=== PATIENT | male | born 1990 | race Caucasian/White ===

== ENCOUNTER 2016-11-04 08:49 | Observation (INO) | payer OTHER ==
[~2016-11-04] VITALS: Ht 188 cm; Wt 63.0 kg
[2016-11-04 08:51] VITALS: BP 134/69; PULSE 89; RESP 16; TEMP 97.9; O2SAT 100
[2016-11-04 09:12] VITALS: O2SAT 98
[2016-11-04] MEDS ORDERED: PANTOPRAZOLE INJ 80 MG in SODIUM CHLORIDE 0.9% INJ 35 ML IV ONE (09:15)
[2016-11-04] MEDS ORDERED: SODIUM CHLORIDE 0.9% FLUSH 10 ML FLUSH IVF PRN (09:15)
--- NOTE | 2016-11-04 09:27 | RADRPT ---
EXAM DATE/TIME: 11/04/2016 09:11 [place] COMPARISON: No previous studies available for comparison. INDICATIONS : Chest pain and shortness of breath. MEDICAL HISTORY : None. SURGICAL HISTORY : None. ENCOUNTER: Initial ACUITY: 2 days PAIN SCORE: 10/10 LOCATION: Bilateral chest FINDINGS: AP views of the chest demonstrate a normal-sized cardiac silhouette. Hilar structures are elevated. T here are lung stable lines visualized bilaterally. No effusion, consolidation, or pneumothorax is isidro ntified. Embolization coil overlies the left upper quadrant. CONCLUSION: No acute cardiopulmonary abnormality is identified. There are findings indicating prior bilateral manejet g surgery. Usman White MD on November 04, 2016 at 9:21 Board Certified Radiologist. This report was verified electronically.
[2016-11-04 09:32] LABS: AUTOMATED NEUTROPHIL # 4.9 TH/MM3 (1.8-7.7); BASOPHIL # 0.1 TH/MM3 (0-0.2); BASOPHIL % 0.8 % (0.0-2.0); EOSINOPHIL # 0.1 TH/MM3 (0-0.4); EOSINOPHIL % 1.5 % (0.0-4.0); HEMATOCRIT 41.9 % (39.0-51.0); HEMO FLAGS DIFF FINAL; LYMPH % 22.8 % (9.0-44.0); LYMPHOCYTE # 1.7 TH/MM3 (1.0-4.8); MEAN CORPUSCULAR HEMOGLOBIN 28.4 PG (27.0-34.0); MEAN CORPUSCULAR HGB CONC 33.1 % (32.0-36.0); MONO % 8.8 % (0.0-8.0); NEUT % 66.1 % (16.0-70.0); PLATELET COUNT 185 TH/MM3 (150-450); RED BLOOD COUNT 4.88 MIL/MM3 (4.50-5.90); RED CELL DISTRIBUTION WIDTH 14.6 % (11.6-17.2); WHITE BLOOD COUNT 7.5 TH/MM3 (4.0-11.0)
[2016-11-04 09:39] LABS: APTT (PATIENT) 37.3 SEC (24.3-30.1); INTERNATIONAL NORMALIZED RATIO 2.5 RATIO; PROTHROMBIN TIME - PATIENT 28.5 SEC (9.8-11.6)
[2016-11-04 09:44] LABS: ANION GAP 9 MEQ/L (5-15); AST (GOT) 11 U/L (15-37); BICARBONATE 26.7 MEQ/L (21.0-32.0); BLOOD UREA NITROGEN 21 MG/DL (7-18); CHLORIDE 106 MEQ/L (98-107); GLOMERULAR FILTRATION RATE 77 ML/MIN (>89); POTASSIUM 3.9 MEQ/L (3.5-5.1); SODIUM (NA) 142 MEQ/L (136-145)
[2016-11-04 09:45] LABS: ALT (GPT) 18 U/L (12-78)
[2016-11-04] MEDS ORDERED: MORPHINE SULFATE 4 MG/ML INJ IV PUSH ONE (09:45)
[2016-11-04 09:47] LABS: ALKALINE PHOSPHATASE 60 U/L (45-117); TOTAL BILIRUBIN ADULT 0.8 MG/DL (0.2-1.0)
[2016-11-04] MEDS: PANTOPRAZOLE INJ 80 MG in SODIUM CHLORIDE 0.9% INJ 100 ML IV SCH ×2 (10:07→21:33)
[2016-11-04] MEDS ORDERED: NALOXONE HCL 0.4 MG/ML AMP IV PRN (11:30)
[2016-11-04] MEDS ORDERED: ONDANSETRON HCL 4 MG/2 ML VIAL IVP PRN (11:30)
[2016-11-04] MEDS ORDERED: SODIUM CHLORIDE 0.9% FLUSH 10 ML FLUSH IV FLUSH PRN (11:30)
[2016-11-04] MEDS ORDERED: ACETAMINOPHEN 325 MG TAB PO PRN ×2 (11:30)
[2016-11-04] MEDS ORDERED: MAGNESIUM HYDROXIDE SUSP 30 ML CUP PO PRN (11:30)
--- NOTE | 2016-11-04 11:34 | PD ---
HPI Chief Complaint: Cardiac Complaint Time Seen by Provider: 09:04 Travel History International Travel<30 days: No Contact w/Intl Traveler<30days: No Traveled to known affect area: No History of Present Illness HPI This is a 26-year-old male who has a history of lupus anticoagulant with recurrent pulmonary emboli who presents to the emergency department with 2 days of coffee-ground emesis and dark stools, intermittent, moderate severity, with no associated abdominal pain. He says that yesterday he vomited and he noticed that what came up was dark and looked like coffee grounds. He's also had some black stools which is unusual for him. He is on Coumadin for recurrent pulmonary embolism. He also says he's had some chest discomfort and shortness of breath over the past several days. He also has a history of spontaneous pneumothorax but he says this doesn't feel like that. He follows with a md psychiatry in [place] and was on Xarelto for a period of time but developed a pulmonary embolism despite it so he was switched to Coumadin. 3 weeks ago his INR was slightly subtherapeutic and his dose was increased. PFSH Past Medical History Hx Anticoagulant Therapy: Yes (coumadin) Blood Disorders: Yes Cardiovascular Problems: Yes Medical other: Yes (anti coag Lupus) Respiratory: Yes (hx of PE and Pneumothorax) Myocardial Infarction: Yes Thyroid Disease: Yes Tetanus Vaccination: < 5 Years Influenza Vaccination: No Past Surgical History Other Surgery: Yes (lung surgeries) Social History Alcohol Use: No Tobacco Use: Yes Substance Use: No Allergies-Medications (Allergen,Severity, Reaction): Coded Allergies: No Known Allergies (Unverified , 11/04/16) Review of Systems Except as stated in HPI: all other systems reviewed are Neg Physical Exam Narrative GENERAL:Well appearing, no acute distress SKIN: Focused skin assessment warm and dry. HEAD: Atraumatic. Normocephalic. EYES: Pupils equal and round. No injection or drainage. ENT: Moist mucous membranes NECK: Trachea midline. CARDIOVASCULAR: Regular rate and rhythm. No murmur appreciated. RESPIRATORY: Clear to auscultation. Breath sounds equal bilaterally. GASTROINTESTINAL: Abdomen soft, non-tender, nondistended. MUSCULOSKELETAL: No obvious deformities. NEUROLOGICAL: Awake and alert. No obvious cranial nerve deficits. Moving all extremities. PSYCHIATRIC: Appropriate mood and affect; insight and judgment normal. Data Data Last Documented VS Vital Signs Date Time Temp Pulse Resp B/P Pulse Ox O2 Delivery O2 Flow Rate FiO2 11/04/16 09:12 98 11/04/16 09:00 79 18 Room Air 11/04/16 08:51 97.9 134/69 Orders Complete Blood Count With Diff (11/04/16 09:09) Comprehensive Metabolic Panel (11/04/16 09:09) Prothrombin Time / Inr (Pt) (11/04/16 09:09) Act Partial Throm Time (Ptt) (11/04/16 09:09) Type And Screen (11/04/16 09:09) Chest, Single Ap (11/04/16 09:09) Ecg Monitoring (11/04/16 09:09) Iv Access Insert/Monitor (11/04/16 09:09) Oximetry (11/04/16 09:09) Sodium Chloride 0.9% Flush (Ns Flush) (11/04/16 09:15) Pantoprazole Inj (Protonix Inj) (11/04/16 09:15) Pantoprazole Inj (Protonix Inj) (11/04/16 09:15) D-Dimer (11/04/16 09:11) Troponin I (11/04/16 09:20) Morphine Inj (Morphine Inj) (11/04/16 09:45) Electrocardiogram (11/04/16 09:00) Admit Order (Ed Use Only) (11/04/16 11:16) Labs Laboratory Tests Test 11/04/16 09:10 White Blood Count 7.5 TH/MM3 Red Blood Count 4.88 MIL/MM3 Hemoglobin 13.9 GM/DL Hematocrit 41.9 % Mean Corpuscular Volume 86.0 FL Mean Corpuscular Hemoglobin 28.4 PG Mean Corpuscular Hemoglobin 33.1 % Concent Red Cell Distribution Width 14.6 % Platelet Count 185 TH/MM3 Mean Platelet Volume 7.3 FL Neutrophils (%) (Auto) 66.1 % Lymphocytes (%) (Auto) 22.8 % Monocytes (%) (Auto) 8.8 % Eosinophils (%) (Auto) 1.5 % Basophils (%) (Auto) 0.8 % Neutrophils # (Auto) 4.9 TH/MM3 Lymphocytes # (Auto) 1.7 TH/MM3 Monocytes # (Auto) 0.7 TH/MM3 Eosinophils # (Auto) 0.1 TH/MM3 Basophils # (Auto) 0.1 TH/MM3 CBC Comment DIFF FINAL Differential Comment Prothrombin Time 28.5 SEC Prothromb Time International 2.5 RATIO Ratio Activated Partial 37.3 SEC Thromboplast Time D-Dimer Quantitative (PE/DVT) LESS THAN 0.19 MG/L FEU Sodium Level 142 MEQ/L Potassium Level 3.9 MEQ/L Chloride Level 106 MEQ/L Carbon Dioxide Level 26.7 MEQ/L Anion Gap 9 MEQ/L Blood Urea Nitrogen 21 MG/DL Creatinine 1.13 MG/DL Estimat Glomerular Filtration 77 ML/MIN Rate Random Glucose 61 MG/DL Calcium Level 9.1 MG/DL Total Bilirubin 0.8 MG/DL Aspartate Amino Transf 11 U/L (AST/SGOT) Alanine Aminotransferase 18 U/L (ALT/SGPT) Alkaline Phosphatase 60 U/L Troponin I LESS THAN 0.02 NG/ML Total Protein 7.1 GM/DL Albumin 4.7 GM/DL Blood Type O POSITIVE Antibody Screen NEGATIVE Blood Bank Comment [facility] Medical Decision Making Medical Screen Exam Complete: Yes Emergency Medical Condition: Yes Interpretation(s) Afebrile, no tachycardia, normotensive Electrolytes are reassuring Troponin is normal D-dimer is negative Chest x-rays reassuring Differential Diagnosis Upper GI bleed, anemia, pulmonary embolism, pneumothorax Narrative Course This is a 26-year-old male who has a history of lupus anticoagulant who develops recurrent pulmonary emboli comes to the emergency department with coffee ground emesis and dark stool. Labs were obtained which demonstrate an INR of 2.5 with a normal hemoglobin. Patient requested we send a d-dimer and not do a CT scan given his multiple imaging studies in the past and the d-dimer was reassuring. I did perform a Hemoccult but wasn't able to obtain any stool. I think the patient requires observation for serial hematocrits, GI consultation and likely endoscopy in the setting of upper GI bleed on anticoagulation. Patient was started on a Protonix drip. Diagnosis Primary Impression: Upper GI bleed Admitting Information Admitting Physician Requests: Observation Kate Wilson MD Nov 04, 2016 11:34
[2016-11-04] MEDS ORDERED: GABA300C5 PO (11:50)
[2016-11-04] MEDS ORDERED: COUM5TAB PO (11:50)
[2016-11-04] MEDS ORDERED: METH5TAB4 PO (11:50)
[2016-11-04] MEDS ORDERED: OXYC-395 PO (11:50)
[2016-11-04 11:59] VITALS: BP 101/63; PULSE 59; RESP 20
[2016-11-04 13:29] VITALS: BP 100/62; PULSE 52; RESP 16; TEMP 98.7; O2SAT 100
--- NOTE | 2016-11-04 13:45 | HHI.HP ---
HPI Service [facility] Primary Care Physician Non-Staff Admission Diagnosis upper gi bleed Diagnoses: (1) Upper GI bleed (2) History of pulmonary embolism (3) Lupus (4) Tobacco abuse counseling (5) Tobacco abuse Chief Complaint: Hematemesis Travel History International Travel<30 Days: No Contact w/Intl Traveler <30 Da: No Traveled to Known Affected Are: No History of Present Illness 26-year-old male with a history of lupus anticoagulant and recurring PE present to the ED for evaluation of acute onset of a cyst 2 with bright red blood on November 04 along with 1 bright red blood per rectum. She had associated abdominal pain. Denies any episode today. He is currently on Coumadin 6 years for PE. H&H in ED unremarkable and vital stable. Patient denies any shortness of breath or chest pain. Review of Systems Except as stated in HPI: all other systems reviewed are Neg Past Family Social History Past Medical History Blood Disorders: Yes Cardiovascular Problems: Yes Medical other: Yes (anti coag Lupus) Respiratory: Yes (hx of PE and Pneumothorax) Myocardial Infarction: Yes Thyroid Disease: Yes Past Surgical History Lung surgeries Reported Medications Neurontin Methimazole 5 mg daily Coumadin 5 mg daily Rosalba-Colace Allergies: Coded Allergies: No Known Allergies (Unverified , 11/04/16) Family History Mother had cancer Father has hypertension, hyperlipidemia Strong family history of GI cancer Social History Alcohol Use: No Tobacco Use: Yes Substance Use: No Physical Exam Vital Signs Vital Signs Date Time Temp Pulse Resp B/P Pulse Ox O2 Delivery O2 Flow Rate FiO2 11/04/16 13:29 98.7 52 16 100/62 100 11/04/16 11:59 59 20 101/63 11/04/16 09:12 98 11/04/16 09:00 79 18 100 Room Air 11/04/16 08:51 97.9 89 16 134/69 100 Physical Exam GENERAL: This is a well-nourished, well-developed patient, in no apparent distress. SKIN: No rashes, ecchymoses or lesions. Cool and dry. HEAD: Atraumatic. Normocephalic. No temporal or scalp tenderness. EYES: Pupils equal round and reactive. Extraocular motions intact. No scleral icterus. No injection or drainage. ENT: Nose without bleeding, purulent drainage or septal hematoma. Throat without erythema, tonsillar hypertrophy or exudate. Uvula midline. Airway patent. NECK: Trachea midline. No JVD or lymphadenopathy. Supple, nontender, no meningeal signs. CARDIOVASCULAR: Regular rate and rhythm without murmurs, gallops, or rubs. RESPIRATORY: Clear to auscultation. Breath sounds equal bilaterally. No wheezes , rales, or rhonchi. GASTROINTESTINAL: Abdomen soft, non-tender, nondistended. No hepato-splenomegaly , or palpable masses. No guarding. MUSCULOSKELETAL: Extremities without clubbing, cyanosis, or edema. No joint tenderness, effusion, or edema noted. No calf tenderness. Negative Homans sign bilaterally. NEUROLOGICAL: Awake and alert. Cranial nerves II through XII intact. Motor and sensory grossly within normal limits. Five out of 5 muscle strength in all muscle groups. Normal speech. Laboratory Laboratory Tests Test 11/04/16 09:10 White Blood Count 7.5 Red Blood Count 4.88 Hemoglobin 13.9 Hematocrit 41.9 Mean Corpuscular Volume 86.0 Mean Corpuscular Hemoglobin 28.4 Mean Corpuscular Hemoglobin 33.1 Concent Red Cell Distribution Width 14.6 Platelet Count 185 Mean Platelet Volume 7.3 Neutrophils (%) (Auto) 66.1 Lymphocytes (%) (Auto) 22.8 Monocytes (%) (Auto) 8.8 Eosinophils (%) (Auto) 1.5 Basophils (%) (Auto) 0.8 Neutrophils # (Auto) 4.9 Lymphocytes # (Auto) 1.7 Monocytes # (Auto) 0.7 Eosinophils # (Auto) 0.1 Basophils # (Auto) 0.1 CBC Comment DIFF FINAL Differential Comment Prothrombin Time 28.5 Prothromb Time International 2.5 Ratio Activated Partial 37.3 Thromboplast Time D-Dimer Quantitative (PE/DVT) LESS THAN 0.19 Sodium Level 142 Potassium Level 3.9 Chloride Level 106 Carbon Dioxide Level 26.7 Anion Gap 9 Blood Urea Nitrogen 21 Creatinine 1.13 Estimat Glomerular Filtration 77 Rate Random Glucose 61 Calcium Level 9.1 Total Bilirubin 0.8 Aspartate Amino Transf 11 (AST/SGOT) Alanine Aminotransferase 18 (ALT/SGPT) Alkaline Phosphatase 60 Troponin I LESS THAN 0.02 Total Protein 7.1 Albumin 4.7 Blood Type O POSITIVE Antibody Screen NEGATIVE Blood Bank Comment Result Diagram: 11/04/16 0910 11/04/16909 Imaging Last Impressions Chest X-Ray 11/04/16908 Signed Impressions: Service Date/Time: Friday, November 04, 2016 09:11 - CONCLUSION: No acute cardiopulmonary abnormality is identified. There are findings indicating prior bilateral lung surgery. Usman White MD Assessment and Plan Problem List: (1) Upper GI bleed ICD Code: K92.2 Status: Acute (2) History of pulmonary embolism ICD Code: Z86.711 Status: Acute (3) Tobacco abuse ICD Code: Z72.0 Status: Acute (4) Tobacco abuse counseling ICD Code: Z71.6 Status: Acute Assessment and Plan 26 year-old man with Gastrointestinal bleeding Consult gastroenterology for evaluation for possible panendoscopy Start PPI drip Hold Coumadin Monitor serial H&H History of recurrent PE Chest x-ray noted and reviewed by me without any cardio pulmonary disease Normal d-dimer Secondary to GI bleed, will hold Coumadin History of hyperthyroidism Resume Methimazole Chronic pain syndrome Resume narcotics Schedule Rosalba-Colace Neuropathy Resume Neurontin History of systemic lupus Outpatient management Tobacco abuse Tobacco cessation counseling provided DVT prophylaxis: Chemical anti-prophylactic contraindicated C5 to GI bleed; bilateral SCDs GI prophylaxis: PPI Code Status Full code Discussed Condition With Patient, ED physician Alvin Quiñones MD Nov 04, 2016 13:45
--- NOTE | 2016-11-04 14:05 | EKG ---
Date Performed: 11/04/2016 Time Performed: 09:00:49 PTAGE: 26 years EKG: Sinus rhythm BORDERLINE RIGHT AXIS DEVIATION BORDERLINE ECG NO PREVIOUS TRACING DOCTOR: Jose Willis Interpretating Date/Time 11/04/2016 14:03:16
--- NOTE | 2016-11-04 14:40 | PD.CONS ---
HPI History of Present Illness This is a 26 year old male with hx lupus, recurrent PE on coumadin who presented to the ER with chest pain, abd pain, red blood in stool, coffee ground emesis. 2-3 days ago he began noticing progessive darkening of stool and also with red blood in stool and in bowl. Yesterday and this morning he had coffee ground emesis. HIs abd pain is in the epigastric region and started this morning after trying to eat a PBJ. He indicates sternal pain as well yesterday morning and has improved, no SOB. He does have hx PE and had one in July, he says he has had 14 in the last 3.5 years. He last had coumadin yesterday. He had an episode of rectal bleeding 4 to 5 years ago and had colonoscopy, said "stuff was scraped off" that was supposedly "cancerous." Pos fam hx colon ca. Never had EGD. Pt is asking for lovenox since his coumadin is being held. (Arin Braun) PFSH Past Medical History Blood Disorders: Yes Cardiovascular Problems: Yes Medical other: Yes (anti coag Lupus) Respiratory: Yes (hx of PE and Pneumothorax) Myocardial Infarction: Yes Thyroid Disease: Yes Past Surgical History Lung surgeries for pneumothorax (Arin Braun) Coded Allergies: No Known Allergies (Unverified , 11/04/16) Family History Mother had cancer Father has hypertension, hyperlipidemia Strong family history of GI cancer Social History Alcohol Use: No Tobacco Use: Yes Substance Use: No (Arin Braun) Review of Systems Constitutional: DENIES: Fever Eyes: DENIES: Blurred vision Ears, nose, mouth, throat: DENIES: Hearing loss Respiratory: DENIES: Hemoptysis Cardiovascular: COMPLAINS OF: Chest pain Gastrointestinal: COMPLAINS OF: Abdominal pain, Black stools, Bloody stools, Diarrhea, Nausea, Vomiting, Hematemesis Genitourinary: DENIES: Hematuria Musculoskeletal: DENIES: Joint Swelling Integumentary: DENIES: Jaundice Hematologic/lymphatic: DENIES: Lymphadenopathy Neurologic: DENIES: Abnormal gait Psychiatric: DENIES: Confusion (Arin Braun) GI Exam Vitals I&O Vital Signs Date Time Temp Pulse Resp B/P Pulse Ox O2 Delivery O2 Flow Rate FiO2 11/04/16 13:29 98.7 52 16 100/62 100 11/04/16 11:59 59 20 101/63 11/04/16 09:12 98 11/04/16 09:00 79 18 100 Room Air 11/04/16 08:51 97.9 89 16 134/69 100 Imaging Last Impressions Chest X-Ray 11/04/16 0909 Signed Impressions: Service Date/Time: Friday, November 04, 2016 09:11 - CONCLUSION: No acute cardiopulmonary abnormality is identified. There are findings indicating prior bilateral lung surgery. Usman White MD Laboratory Test 11/04/16 09:10 White Blood Count 7.5 TH/MM3 Red Blood Count 4.88 MIL/MM3 Hemoglobin 13.9 GM/DL Hematocrit 41.9 % Mean Corpuscular Volume 86.0 FL Mean Corpuscular Hemoglobin 28.4 PG Mean Corpuscular Hemoglobin 33.1 % Concent Red Cell Distribution Width 14.6 % Platelet Count 185 TH/MM3 Mean Platelet Volume 7.3 FL Neutrophils (%) (Auto) 66.1 % Lymphocytes (%) (Auto) 22.8 % Monocytes (%) (Auto) 8.8 % Eosinophils (%) (Auto) 1.5 % Basophils (%) (Auto) 0.8 % Neutrophils # (Auto) 4.9 TH/MM3 Lymphocytes # (Auto) 1.7 TH/MM3 Monocytes # (Auto) 0.7 TH/MM3 Eosinophils # (Auto) 0.1 TH/MM3 Basophils # (Auto) 0.1 TH/MM3 CBC Comment DIFF FINAL Differential Comment Prothrombin Time 28.5 SEC Prothromb Time International 2.5 RATIO Ratio Activated Partial 37.3 SEC Thromboplast Time D-Dimer Quantitative (PE/DVT) LESS THAN 0.19 MG/L FEU Sodium Level 142 MEQ/L Potassium Level 3.9 MEQ/L Chloride Level 106 MEQ/L Carbon Dioxide Level 26.7 MEQ/L Anion Gap 9 MEQ/L Blood Urea Nitrogen 21 MG/DL Creatinine 1.13 MG/DL Estimat Glomerular Filtration 77 ML/MIN Rate Random Glucose 61 MG/DL Calcium Level 9.1 MG/DL Total Bilirubin 0.8 MG/DL Aspartate Amino Transf 11 U/L (AST/SGOT) Alanine Aminotransferase 18 U/L (ALT/SGPT) Alkaline Phosphatase 60 U/L Troponin I LESS THAN 0.02 NG/ML Total Protein 7.1 GM/DL Albumin 4.7 GM/DL Blood Type O POSITIVE Antibody Screen NEGATIVE Blood Bank Comment Physical Examination HEENT: PERRL; normocephalic; atraumatic; no jaundice. CHEST: CTA CARDIAC: RRR ABDOMEN: Soft, nondistended,epigastric & LUQ TTP; no hepatosplenomegaly; bowel sounds are present in all four quadrants. EXTREMITIES: No clubbing, cyanosis, or edema. SKIN: Normal; no rash; no jaundice. RECORD PRESSMAN: No focal deficits; alert and oriented times three. (Arin Braun) Assessment and Plan Plan ASSESSMENT - coffee ground emesis - episodes yesterday and this morning. HH WNL currently. Pt has been on coumadin for recurrent PE, hx lupus anticoagulant coumadin held currently, INR 2.5 - hematochezia, melena - 2-3 days ago pt started noticing blood in stool and darkening of stool. hx prior rectal bleeding 4-5 years ago for which he had colonoscopy and something precancerous was "scraped off - recurrent PE - d -dimer reassuring per primary, CXR ok PLAN - EGD/colonoscopy - obtain consents - clears today - NPO after midnight - Mg Citrate - monitor HH - if active bleeding stat bleed scan - further recommendations to follow This pt seen by Dr Anguiano and myself and this note is written on her behalf ( Arin Braun) Physician Comments seen, examined agree with above history of recent NSAID use also strong family history of cancer at young age (Moira Anguiano MD) Arin Braun Nov 04, 2016 14:40 Moira Anguiano MD Nov 04, 2016 21:12
[2016-11-04] MEDS ORDERED: MAGNESIUM CITRATE SOLN 300 ML BTL PO ONE ×2 (15:30→17:30)
[2016-11-04] MEDS: GABAPENTIN 300 MG CAP PO SCH ×2 (15:35→18:11)
[2016-11-04] MEDS: METHIMAZOLE 5 MG TAB PO SCH (16:21)
[2016-11-04] MEDS ORDERED: GABAPENTIN 300 MG CAP PO SCH (18:00)
[2016-11-04] MEDS: DOCUSATE SODIUM 50 MG/SENNA 8.6 MG TAB PO SCH (20:24)
[2016-11-04] MEDS: SODIUM CHLORIDE 0.9% FLUSH 10 ML FLUSH IV FLUSH SCH (21:00)
[2016-11-04 22:05] LABS: HEMATOCRIT 40.3 % (39.0-51.0); REVIEW FLAG FINAL
[2016-11-04 23:51] VITALS: BP 102/55; PULSE 47; RESP 18; TEMP 98.6; O2SAT 100
[2016-11-05 04:04] VITALS: BP 103/53; PULSE 60; RESP 20; TEMP 97.8; O2SAT 100
[2016-11-05] MEDS: PANTOPRAZOLE INJ 80 MG in SODIUM CHLORIDE 0.9% INJ 100 ML IV SCH ×2 (05:15→15:02)
[2016-11-05] MEDS ORDERED: SODIUM CHLOR 0.9% 1000 ML INJ 1,000 ML IV SCH (07:30)
[2016-11-05 07:43] VITALS: BP 106/59; PULSE 53; RESP 12; TEMP 97.8; O2SAT 100
[2016-11-05 07:53] LABS: AUTOMATED NEUTROPHIL # 3.9 TH/MM3 (1.8-7.7); BASOPHIL # 0.1 TH/MM3 (0-0.2); BASOPHIL % 0.9 % (0.0-2.0); EOSINOPHIL # 0.2 TH/MM3 (0-0.4); EOSINOPHIL % 2.7 % (0.0-4.0); HEMATOCRIT 38.6 % (39.0-51.0); HEMO FLAGS DIFF FINAL; LYMPH % 25.7 % (9.0-44.0); LYMPHOCYTE # 1.6 TH/MM3 (1.0-4.8); MEAN CORPUSCULAR HEMOGLOBIN 29.1 PG (27.0-34.0); MEAN CORPUSCULAR HGB CONC 34.3 % (32.0-36.0); MONO % 7.3 % (0.0-8.0); NEUT % 63.4 % (16.0-70.0); PLATELET COUNT 139 TH/MM3 (150-450); RED BLOOD COUNT 4.55 MIL/MM3 (4.50-5.90); RED CELL DISTRIBUTION WIDTH 14.4 % (11.6-17.2); WHITE BLOOD COUNT 6.2 TH/MM3 (4.0-11.0)
--- NOTE | 2016-11-05 07:54 | HHI.PR ---
Subjective Remarks Follow up for GI bleeding with hematemesis, BRBPR. The patient reports no further nausea/vomiting overnight. He does have some mild mid-abdominal pains today. Multiple BMs overnight after drinking bowel prep, states he did not look in the toilet so unsure if any blood was present. Denies fevers/chills. Denies lightheadedness, dizziness, chest pain, or shortness of breath. Objective Vitals Vital Signs Date Time Temp Pulse Resp B/P Pulse Ox O2 Delivery O2 Flow Rate FiO2 11/05/16 07:43 97.8 53 12 106/59 100 11/05/16 04:04 97.8 60 20 103/53 100 11/04/16 23:51 98.6 47 18 102/55 100 11/04/16 13:29 98.7 52 16 100/62 100 11/04/16 11:59 59 20 101/63 11/04/16 09:12 98 11/04/16 09:00 79 18 100 Room Air 11/04/16 08:51 97.9 89 16 134/69 100 Result Diagram: 11/05/16 0617 11/04/16 0910 Imaging Last Impressions Chest X-Ray 11/04/16 0909 Signed Impressions: Service Date/Time: Friday, November 04, 2016 09:11 - CONCLUSION: No acute cardiopulmonary abnormality is identified. There are findings indicating prior bilateral lung surgery. Usman White MD Objective Remarks GENERAL: Well-nourished, well-developed young male patient in [facility]. SKIN: Warm and dry. No rash. HEENT: Normocephalic. Atraumatic. Pupils equal and round. Mucous membranes pink and moist. NECK: Supple. Trachea midline. CARDIOVASCULAR: Regular rate and rhythm. S1, S2 noted. No murmur appreciated. RESPIRATORY: No accessory muscle use. Clear to auscultation. Breath sounds equal bilaterally. GASTROINTESTINAL: Abdomen soft, non-tender, nondistended. Normoactive bowel sounds x4. MUSCULOSKELETAL: No obvious deformities. Extremities without clubbing, cyanosis , or edema. NEUROLOGICAL: Awake and alert. No obvious cranial nerve deficits. Motor grossly within normal limits. Normal speech. Medications and IVs Current Medications Medications (Trade) Dose Ordered Sig/[place] Route Start Time Stop Time Status Last Admin (Protonix Inj/NS Inj) 100 ml @ 10 mls/hr Q10H IV 11/04/16 09:15 11/04/16 21:33 (NS Flush) 2 ml UNSCH PRN IV FLUSH 11/04/16 11:30 (NS Flush) 2 ml BID IV FLUSH 11/04/16 21:00 11/04/16 21:00 (Tylenol) 650 mg Q4H PRN PO 11/04/16 11:30 (Zofran Inj) 4 mg Q6H PRN IVP 11/04/16 11:30 (Tylenol) 650 mg Q6H PRN PO 11/04/16 11:30 (Narcan Inj) 0.4 mg UNSCH PRN IV 11/04/16 11:30 (Milk Of Magnnhan Liq) 30 ml Q12H PRN PO 11/04/16 11:30 (Neurontin) 300 mg TID PO 11/04/16 15:00 11/05/16 08:01 (Tapazole) 5 mg DAILY PO 11/04/16 16:00 11/05/16 08:01 (Roxicodone) 10 mg Q6H PRN PO 11/04/16 14:15 11/05/16 04:21 Senna/Docusate Sodium 1 tab 1 tab BID PO 11/04/16 21:00 11/04/16 20:24 (NS 1000 ml Inj) 1,000 ml @ 84 mls/hr [id number] IV 11/05/16 07:30 11/05/16 19:24 11/05/16 08:02 A/P Problem List: (1) Upper GI bleed ICD Code: K92.2 Status: Acute (2) History of pulmonary embolism ICD Code: Z86.711 Status: Acute (3) Lupus ICD Code: M32.9 Status: Acute (4) Tobacco abuse counseling ICD Code: Z71.6 Status: Acute (5) Tobacco abuse ICD Code: Z72.0 Status: Acute Assessment and Plan 26 year-old male presents with: Gastrointestinal bleeding: presented with coffee ground hematemesis x2 and BRBPR -Start PPI drip -Hold Coumadin, INR 2.5 -Monitor serial H&H, currently stable at 13.7 -Consult gastroenterology, plans for EGD/colonoscopy today History of recurrent PE on Anticoagulation with Coumadin: -CXR reviewed, no acute findings -Normal d-dimer -Holding Coumadin for now with GI bleeding as above -patient follows with PCP in [place] for INR monitoring -recommend patient f/up with hematology after discharge. History of hyperthyroidism: -Resume Methimazole Chronic pain syndrome -Resume narcotics -Schedule Rosalba-Colace Neuropathy -Resume Neurontin History of systemic lupus -Outpatient management, f/up with rheumatology Tobacco abuse -Tobacco cessation counseling provided DVT prophylaxis: bilateral SCDs; Chemoprophylaxis contraindicated with GI bleeding GI prophylaxis: PPI Discharge Planning 0800hrs: Possible discharge after EGD/colonoscopy today if cleared by GI. 1400hrs: EGD showed Gastritis antrum; esophagitis distal esophagus; no biopsy done due to high INR; hiatal hernia. Colonoscopy showed internal hemorrhoids and external hemorrhoids. Recommended PPI, benefiber 2tsp daily, probiotics from [facility] or [employer]. Avoid NSAIDs, outpatient stool h.pylori antigen, repeat colonoscopy in 5years; ok to restart anticoagulation and cleared for discharge home from GI standpoint, f/up with outpatient GI. Diet advanced to regular. Will discharge home if patient tolerates diet. Discharge patient to home Condition on discharge: Improved Regular Diet as tolerated Ad Tammy activity Rx written: Protonix, Benefiber, probiotics, refilled patient's Coumadin Follow-up with primary care physician and gastroenterology. Oralia Shaffer PA-C Nov 05, 2016 07:54
[2016-11-05] MEDS: GABAPENTIN 300 MG CAP PO SCH ×2 (08:01→14:00)
[2016-11-05] MEDS: METHIMAZOLE 5 MG TAB PO SCH (08:01)
[2016-11-05] MEDS: DOCUSATE SODIUM 50 MG/SENNA 8.6 MG TAB PO SCH (08:02)
[2016-11-05] MEDS: SODIUM CHLORIDE 0.9% FLUSH 10 ML FLUSH IV FLUSH SCH (08:02)
[2016-11-05 08:22] LABS: ALT (GPT) 16 U/L (12-78); ANION GAP 8 MEQ/L (5-15); BICARBONATE 26.1 MEQ/L (21.0-32.0); BLOOD UREA NITROGEN 14 MG/DL (7-18); CHLORIDE 108 MEQ/L (98-107); GLOMERULAR FILTRATION RATE 120 ML/MIN (>89); POTASSIUM 3.9 MEQ/L (3.5-5.1); SODIUM (NA) 142 MEQ/L (136-145)
[2016-11-05 08:32] LABS: ALKALINE PHOSPHATASE 44 U/L (45-117); AST (GOT) 9 U/L (15-37)
[2016-11-05] MEDS ORDERED: METHIMAZOLE 5 MG TAB PO SCH (09:00)
[2016-11-05 11:04] VITALS: BP 106/59; PULSE 53; RESP 14; TEMP 97.8; O2SAT 100
[2016-11-05 11:44] LABS: INTERNATIONAL NORMALIZED RATIO 2.8 RATIO; PROTHROMBIN TIME - PATIENT 32.1 SEC (9.8-11.6)
--- NOTE | 2016-11-05 13:28 | GIPROC ---
[facility] [address] [facility]. [facility], [address] EGD PROCEDURE REPORT EXAM DATE: 11/05/2016 PATIENT NAME: Delmar Lisa MR #: [id number] BIRTHDATE: 1990 ATTENDING: Moira Anguiano MD ORDER #: [id number] RESTAURANT TEAM MEMBER: Kvng Hagan and Amada Jolly STATUS: inpatient INDICATIONS: The patient is a 26 yr old male here for an EGD due to gi bleeding PROCEDURE PERFORMED: EGD, diagnostic MEDICATIONS: None and Per Anesthesia. TOPICAL ANESTHETIC: none CONSENT: The patient understands the risks and benefits of the procedure and understands that these risks include, but are not limited to: sedation, allergic reaction, infection, perforation and/or bleeding. Alternative means of evaluation and treatment include, among others: physical exam, x-rays, and/or surgical intervention. The patient elects to proceed with this endoscopic procedure. medical equipment was checked for proper function. Hand hygiene and appropriate measures for infection prevention was taken. After the risks, benefits and alternatives of the procedure were thoroughly explained, Informed consent was verified, confirmed and timeout was successfully executed by the treatment team. The patient was anesthetized with topical anesthesia and the EC-[id number] (Pedi C) endoscope was introduced through the mouth and advanced to the second portion of the duodenum. Retroflexed views revealed a hiatal hernia The gastroscope was then slowly withdrawn and removed. Gastritis antrum- esophagitis distal esophagus no biopsy done due to high INR. ADVERSE EVENTS: There were no complications. IMPRESSIONS: 1. Gastritis antrum- esophagitis distal esophagus no biopsy done due to high INR 2. Retroflexed views revealed a hiatal hernia RECOMMENDATIONS: 1. Admit to hospital 2. Start PPI 3. Avoid NSAIDS 4. Stool h.pylori antigen-op ok to dc home from gi point fu gi ok to restart anticoagulation from gi point PATIENT CONDITION: stable DISPOSITION: Inpatient REPEAT EXAM: Return as needed for EGD Moira Anguiano MD eSigned: Moira Anguiano MD 11/05/2016 1:27 PM cc: PATIENT NAME: Delmar Lisa MR#: [id number]
--- NOTE | 2016-11-05 13:35 | GIPROC ---
[facility] [address] [facility]. [facility], [address] COLONOSCOPY PROCEDURE REPORT EXAM DATE: 11/05/2016 PATIENT NAME: Delmar Lisa MR #: [id number] BIRTHDATE: 1990 ENDOSCOPIST: Moira Anguiano MD ORDER #: [id number] UNIVERSITY MANAGER: Kvng Hagan and Amada Jolly STATUS: inpatient INDICATIONS: The patient is a 26 yr old male here for a colonoscopy due to gi bleeding PROCEDURE PERFORMED: Colonoscopy, diagnostic MEDICATIONS: None and Per Anesthesia. PREP QUALITY: good PREP TYPE:Other: ESTIMATED BLOOD LOSS: None CONSENT: The patient understands the risks and benefits of the procedure and understands that these risks include, but are not limited to: sedation, allergic reaction, infection, perforation and/or bleeding. Alternative means of evaluation and treatment include, among others: physical exam, x-rays, and/or surgical intervention. The patient elects to proceed with this endoscopic procedure. medical equipment was checked for proper function. Hand hygiene and appropriate measures for infection prevention was taken. After the risks, benefits and alternatives of the procedure were thoroughly explained, Informed consent was verified, confirmed and timeout was successfully executed by the treatment team. A digital exam revealed external hemorrhoids The Pentax EC-[id number] endoscope was introduced through the anus and advanced to the cecum, which was identified by both the appendix and ileocecal valve. The instrument was then slowly withdrawn as the colon was fully examined. COLON FINDINGS: Normal. Retroflexed views revealed internal hemorrhoids and Retroflexed views revealed small internal hemorrhoids The scope was then completely withdrawn from the patient and the procedure terminated. PROCEDURE WITHDRAWAL TIME:6minutes ADVERSE EVENTS: There were no complications. IMPRESSIONS: 1. Normal 2. Retroflexed views revealed internal hemorrhoids 3. Retroflexed views revealed small internal hemorrhoids 4. Revealed external hemorrhoids RECOMMENDATIONS: 1. Benefiber 2 tsp daily 2. Probiotics from any [facility] or health food store RECALL: Return 5 years Colonoscopy Moira Anguiano MD eSigned: Moira Anguiano MD 11/05/2016 1:34 PM cc:
[2016-11-05] MEDS ORDERED: PROT40TA PO (13:47)
--- NOTE | 2016-11-05 13:48 | HHI.DCPOC ---
Discharge Care Plan Diagnosis: (1) Gastritis (2) GI bleeding Goals to Promote Your Health * To prevent worsening of your condition and complications * To maintain your health at the optimal level Directions to Meet Your Goals Take your medications as prescribed Follow your dietary instruction Follow activity as directed Keep your appointments as scheduled Take your immunizations and boosters as scheduled If your symptoms worsen call your PCP, if no PCP go to Urgent Care Center or Emergency Room Smoking is Dangerous to Your Health. Avoid second hand smoke Call the 24-hour hour crisis hotline for domestic abuse at Oralia Shaffer PA-C Nov 05, 2016 13:48
[2016-11-05] MEDS ORDERED: PROPOFOL 200 MG/20 ML AMP IV ONE (14:04)
[2016-11-05] MEDS ORDERED: LACTCAP8 PO (14:22)
[2016-11-05] MEDS ORDERED: WHEA1POW9 PO (14:22)
[2016-11-05 14:43] VITALS: BP 110/68; PULSE 58; RESP 18; TEMP 98.6; O2SAT 100
[2016-11-05] MEDS ORDERED: COUM5TAB PO (15:06)
[2016-11-05 15:34] VITALS: BP_SYST 101; BP_SYST 99; BP_DIAS 57; BP_DIAS 60; PULSE 63; RESP 18; TEMP 97.9; O2SAT 100
== END 2016-11-05 17:00 | disposition home or self-care (01) ==
LOC: NEPE 08:49 → NEDA 11:17 → NEPGCP 13:00
PROVIDERS: ADMIT Hospitalist; ATTEND Hospitalist
DX: K92.2 Gastrointestinal hemorrhage, unspecified (principal); M32.9 Systemic lupus erythematosus, unspecified; I25.2 Old myocardial infarction; K92.0 Hematemesis; F17.200 Nicotine dependence, unspecified, uncomplicated; E05.90 Thyrotoxicosis, unspecified without thyrotoxic crisis or storm; G89.4 Chronic pain syndrome; G62.9 Polyneuropathy, unspecified; Z71.6 Tobacco abuse counseling; Z79.899 Other long term (current) drug therapy; Z86.711 Personal history of pulmonary embolism; Z79.01 Long term (current) use of anticoagulants
CPT/HCPCS: 71010; 80053; 84484; 85014; 85018; 85025; 85379; 85610; 85730; 86850; 86900; 86901; 93005; 96361; 96365; 96366; 96375; 99285; C9113; G0378; J2270; J7030

== ENCOUNTER 2016-11-09 22:04 | Emergency (ER) | payer SELFPAY ==
[~2016-11-09 22:04] MED LIST: COUM5TAB PO; GABA300C5 PO; LACTCAP8 PO; METH5TAB4 PO; OXYC-395 PO; PROT40TA PO; WHEA1POW9 PO
[2016-11-09 22:07] VITALS: BP 115/73; PULSE 67; RESP 16; TEMP 98; O2SAT 100
[2016-11-10] MEDS ORDERED: GABAPENTIN 300 MG CAP PO ONE (00:15)
[2016-11-10] MEDS ORDERED: WARFARIN SOD 5 MG TAB PO ONE (00:15)
[2016-11-10] MEDS ORDERED: oxyCODONE/ACETAMINOPHEN 5 MG/325 MG TAB PO ONE (00:15)
[2016-11-10] MEDS ORDERED: SODIUM CHLORIDE 0.9% FLUSH 10 ML FLUSH IVF PRN (00:15)
--- NOTE | 2016-11-10 00:38 | PD ---
HPI Chief Complaint: Chest Pain Time Seen by Provider: 23:39 Travel History International Travel<30 days: No Contact w/Intl Traveler<30days: No Traveled to known affect area: No History of Present Illness HPI The patient is 26 years old. He has a history of lupus anticoagulant syndrome. He reports numerous prior PEs. He reports that about 11 hours prior to ER arrival he felt today sudden onset of retrosternal chest pain on the left side which she please feels like prior PEs. He was at rest. There is minimal pain with deep inspiration. He takes Coumadin every single day and reports his INR is 3.0. He denies cough. He denies fever. 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) Myocardial Infarction: Yes Sleep Apnea: No Thyroid Disease: Yes (hyperthyroidism) Tetanus Vaccination: Unknown Influenza Vaccination: No Past Surgical History Other Surgery: Yes (lung surgeries) Social History Alcohol Use: No Tobacco Use: Yes Substance Use: No Allergies-Medications (Allergen,Severity, Reaction): Coded Allergies: No Known Allergies (Unverified , 11/04/16) Reported Meds & Prescriptions Reported Meds & Active Scripts Active Lovenox Inj (Enoxaparin Sodium) 60 Mg/0.6 Ml Syr 60 Mg SQ DAILY 2 Days Oxycodone (Oxycodone HCl) 10 Mg Tab 10 Mg PO Q6H PRN Methimazole 5 Mg Tab 5 Mg PO DAILY 5 Days Coumadin (Warfarin) 5 Mg Tab 5 Mg PO DAILY Benefiber (Wheat Dextrin) 144 Gm Powder 1 Pkt PO DAILY Probiotic (Lactobacillus Acidophilus) 1 Cap Cap 1 Cap PO BIDAC Protonix (Pantoprazole Sodium) 40 Mg Tab 40 Mg PO DAILY Reported Gabapentin 300 Mg Cap 300 Mg PO TID Coumadin (Warfarin) 5 Mg Tab 5 Mg PO DAILY Review of Systems Except as stated in HPI: all other systems reviewed are Neg Physical Exam Narrative GENERAL: 26-year-old male, well-nourished well-developed no acute distress SKIN: Warm and dry. HEAD: Atraumatic. Normocephalic. EYES: Pupils equal and round. No scleral icterus. No injection or drainage. ENT: No nasal bleeding or discharge. Mucous membranes pink and moist. NECK: Trachea midline. No JVD. CARDIOVASCULAR: Regular rate and rhythm. RESPIRATORY: No accessory muscle use. Clear to auscultation. Breath sounds equal bilaterally. GASTROINTESTINAL: Abdomen soft, non-tender, nondistended. Hepatic and splenic margins not palpable. MUSCULOSKELETAL: Extremities without clubbing, cyanosis, or edema. No obvious deformities. NEUROLOGICAL: Awake and alert. No obvious cranial nerve deficits. Motor grossly within normal limits. Five out of 5 muscle strength in the arms and legs. Normal speech. PSYCHIATRIC: Appropriate mood and affect; insight and judgment normal. Data Data Last Documented VS Vital Signs Date Time Temp Pulse Resp B/P Pulse Ox O2 Delivery O2 Flow Rate FiO2 11/09/16 22:07 98.0 67 16 115/73 100 Room Air Vital signs reviewed Orders Electrocardiogram (11/10/16 00:14) Basic Metabolic Panel (Bmp) (11/10/16 00:14) Complete Blood Count With Diff (11/10/16 00:14) D-Dimer (11/10/16 00:14) Prothrombin Time / Inr (Pt) (11/10/16 00:14) Ecg Monitoring (11/10/16 00:14) Iv Access Insert/Monitor (11/10/16 00:14) Oximetry (11/10/16 00:14) Sodium Chloride 0.9% Flush (Ns Flush) (11/10/16 00:15) Warfarin (Coumadin) (11/10/16 00:15) Gabapentin (Neurontin) (11/10/16 00:15) Oxycodone-Acetamin 5-325 Mg (Percocet (11/10/16 00:15) Enoxaparin Inj (Lovenox Inj) (11/10/16 03:00) Labs Laboratory Tests Test 11/10/16 00:10 White Blood Count 8.5 TH/MM3 Red Blood Count 5.03 MIL/MM3 Hemoglobin 15.0 GM/DL Hematocrit 42.4 % Mean Corpuscular Volume 84.4 FL Mean Corpuscular Hemoglobin 29.7 PG Mean Corpuscular Hemoglobin 35.2 % Concent Red Cell Distribution Width 14.6 % Platelet Count 187 TH/MM3 Mean Platelet Volume 7.8 FL Neutrophils (%) (Auto) 59.0 % Lymphocytes (%) (Auto) 28.4 % Monocytes (%) (Auto) 8.0 % Eosinophils (%) (Auto) 3.8 % Basophils (%) (Auto) 0.8 % Neutrophils # (Auto) 5.0 TH/MM3 Lymphocytes # (Auto) 2.4 TH/MM3 Monocytes # (Auto) 0.7 TH/MM3 Eosinophils # (Auto) 0.3 TH/MM3 Basophils # (Auto) 0.1 TH/MM3 CBC Comment DIFF FINAL Differential Comment Prothrombin Time 15.3 SEC Prothromb Time International 1.4 RATIO Ratio D-Dimer Quantitative (PE/DVT) LESS THAN 0.19 MG/L FEU Sodium Level 143 MEQ/L Potassium Level 4.0 MEQ/L Chloride Level 105 MEQ/L Carbon Dioxide Level 30.9 MEQ/L Anion Gap 7 MEQ/L Blood Urea Nitrogen 15 MG/DL Creatinine 0.97 MG/DL Estimat Glomerular Filtration 92 ML/MIN Rate Random Glucose 84 MG/DL Calcium Level 8.9 MG/DL [facility] Medical Decision Making Medical Screen Exam Complete: Yes Emergency Medical Condition: Yes Differential Diagnosis NSTEMI, unstable angina, coronary vasospasm, PE, PTX, aortic dissection, pericarditis, myocarditis, endocarditis, PNA, esophageal disease, aneurysm, musculoskeletal etiologies, anxiety, cocaine/sympathomimetic abuse Narrative Course EKG: sinus bradycardia, rate 57, normal axis and intervals CBC & BMP Diagram 11/10/16 00:10 INR 1.4 DDimer < 0.19 EKG reveals a sinus rhythm at a rate of 57, borderline right axis deviation Fortunately the d-dimer is undetectable and in this scenario excessive radiation is reasonably safely deferable. Patient's INR is subtherapeutic at 1.4. We will provide a dose of Lovenox here as well as 2 days of Lovenox. The patient was advised to return to the ER, as he is out of state and unable to obtain an INR otherwise, in 2 days in order to have it checked. His methimazole and oxycodone was refilled at that time as well as the patient stated he is intending to return home to [place] on November 16. Diagnosis Primary Impression: Chest pain Qualified Code: R07.9 - Chest pain, unspecified type Referrals: Primary Care Physician 2 days Additional Instructions: Please be sure to follow up with your primary doctor. If your chest pain returns or if you feel a repeat visit to the ER is necessary please do not hesitate to return. Med/Other Pt SpecificInfo: No Change to Meds Scripts Enoxaparin Inj (Lovenox Inj)60 Mg/0.6 Ml Syr60 Mg SQ DAILY 2 Days Ref 0 Prov:Eligio Glez MD 11/10/16 Oxycodone 10 Mg Tab10 Mg PO Q6H PRN (PAIN) #20 TAB Ref 0 Prov:Eligio Glez MD 11/10/16 Methimazole 5 Mg Tab5 Mg PO DAILY 5 Days Ref 0 Prov:Eligio Glez MD 11/10/16 Disposition: 01 DISCHARGE HOME Eligio Glez MD Nov 10, 2016 00:38
[2016-11-10 00:39] LABS: BASOPHIL # 0.1 TH/MM3 (0-0.2); BASOPHIL % 0.8 % (0.0-2.0); EOSINOPHIL # 0.3 TH/MM3 (0-0.4); EOSINOPHIL % 3.8 % (0.0-4.0); HEMATOCRIT 42.4 % (39.0-51.0); HEMO FLAGS DIFF FINAL; LYMPH % 28.4 % (9.0-44.0); LYMPHOCYTE # 2.4 TH/MM3 (1.0-4.8); MEAN CELL VOLUME 84.4 FL (80.0-100.0); MEAN CORPUSCULAR HEMOGLOBIN 29.7 PG (27.0-34.0); MEAN CORPUSCULAR HGB CONC 35.2 % (32.0-36.0); PLATELET COUNT 187 TH/MM3 (150-450); RED BLOOD COUNT 5.03 MIL/MM3 (4.50-5.90); RED CELL DISTRIBUTION WIDTH 14.6 % (11.6-17.2); WHITE BLOOD COUNT 8.5 TH/MM3 (4.0-11.0)
[2016-11-10 00:55] LABS: INTERNATIONAL NORMALIZED RATIO 1.4 RATIO; PROTHROMBIN TIME - PATIENT 15.3 SEC (9.8-11.6)
[2016-11-10 01:03] LABS: BICARBONATE 30.9 MEQ/L (21.0-32.0)
[2016-11-10] MEDS ORDERED: ENOX60P SQ (02:57)
[2016-11-10] MEDS ORDERED: METH5TAB4 PO (02:57)
[2016-11-10] MEDS ORDERED: OXYC-395 PO (02:57)
[2016-11-10] MEDS ORDERED: ENOXAPARIN SODIUM 60 MG/0.6 ML SYRINGE SQ ONE (03:00)
--- NOTE | 2016-11-10 17:20 | EKG ---
Date Performed: 11/09/2016 Time Performed: 23:50:50 PTAGE: 26 years EKG: SINUS BRADYCARDIA BORDERLINE RIGHT AXIS DEVIATION BORDERLINE ECG Since PREVIOUS TRACING , no significant change noted PREVIOUS TRACIN11/04/2016 09.00 DOCTOR: Cyril Pina Interpretating Date/Time 11/10/2016 17:18:17
== END 2016-11-10 03:36 | disposition home or self-care (01) ==
LOC: NEPC 22:04
DX: R07.9 Chest pain, unspecified (principal); D68.62 Lupus anticoagulant syndrome; E05.90 Thyrotoxicosis, unspecified without thyrotoxic crisis or storm; Z86.711 Personal history of pulmonary embolism; Z79.01 Long term (current) use of anticoagulants; F17.290 Nicotine dependence, other tobacco product, uncomplicated
CPT/HCPCS: 80048; 85025; 85379; 85610; 93005; 96372; 99284; J1650

== ENCOUNTER 2016-11-15 14:56 | Emergency (ER) | payer SELFPAY ==
[~2016-11-15] VITALS: Ht 188 cm; Wt 63.0 kg
[~2016-11-15 14:56] MED LIST changes: +ENOX60P SQ
[2016-11-15 15:00] VITALS: BP 142/75; PULSE 98; RESP 12; TEMP 98.2; O2SAT 100
--- NOTE | 2016-11-15 15:04 | PD ---
Physical Exam Date Seen by Provider: Nov 15, 2016 Time Seen by Provider: 15:01 Narrative Pt presents with left sided chest pain that started last night. Pt was at rest when pain started. Pain is worse with movement. pain radiates to his left neck. 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 PMHx of lupus, on coumadin. VSS, awaiting bed placement, protocols initiated. MDM Supervised Visit with ANGELA: Lnida Mabry Nov 15, 2016 15:04
--- NOTE | 2016-11-15 15:34 | RADRPT ---
EXAM DATE/TIME: 11/15/2016 15:33 [place] COMPARISON: CHEST SINGLE AP, November 04, 2016, 9:11. INDICATIONS : Chest pain started last night. MEDICAL HISTORY : None. SURGICAL HISTORY : None. ENCOUNTER: Initial ACUITY: 1 day PAIN SCORE: 5/10 LOCATION: Bilateral chest FINDINGS: Biapical probable pleural-parenchymal scarring is grossly unchanged. Lungs elsewhere are clear. No ef fusion suspected. Cardiac contours are stable and satisfactory. Thoracic skeleton is grossly intact. CONCLUSION: Biapical pleuroparenchymal changes are stable and likely chronic. Usman Thao MD on November 15, 2016 at 15:32 Board Certified Radiologist. This report was verified electronically.
[2016-11-15 16:04] LABS: AUTOMATED NEUTROPHIL # 5.2 TH/MM3 (1.8-7.7); BASOPHIL # 0.1 TH/MM3 (0-0.2); BASOPHIL % 0.7 % (0.0-2.0); EOSINOPHIL # 0.1 TH/MM3 (0-0.4); EOSINOPHIL % 0.9 % (0.0-4.0); HEMATOCRIT 42.7 % (39.0-51.0); HEMO FLAGS DIFF FINAL; LYMPH % 15.9 % (9.0-44.0); LYMPHOCYTE # 1.1 TH/MM3 (1.0-4.8); MEAN CELL VOLUME 85.8 FL (80.0-100.0); MEAN CORPUSCULAR HEMOGLOBIN 28.6 PG (27.0-34.0); MEAN CORPUSCULAR HGB CONC 33.3 % (32.0-36.0); MONO % 7.9 % (0.0-8.0); NEUT % 74.6 % (16.0-70.0); PLATELET COUNT 195 TH/MM3 (150-450); RED BLOOD COUNT 4.98 MIL/MM3 (4.50-5.90)
[2016-11-15 16:20] LABS: INTERNATIONAL NORMALIZED RATIO 3.2 RATIO; PROTHROMBIN TIME - PATIENT 37.5 SEC (9.8-11.6)
[2016-11-15 16:33] LABS: ALT (GPT) 18 U/L (12-78); ANION GAP 9 MEQ/L (5-15); AST (GOT) 11 U/L (15-37); CHLORIDE 106 MEQ/L (98-107); GLOMERULAR FILTRATION RATE 83 ML/MIN (>89); MAGNESIUM 2.1 MG/DL (1.5-2.5); POTASSIUM 3.7 MEQ/L (3.5-5.1); SODIUM (NA) 142 MEQ/L (136-145)
[2016-11-15 16:36] LABS: ALKALINE PHOSPHATASE 58 U/L (45-117); BLOOD UREA NITROGEN 15 MG/DL (7-18); TOTAL BILIRUBIN ADULT 0.4 MG/DL (0.2-1.0)
--- NOTE | 2016-11-15 17:02 | PD ---
HPI Chief Complaint: Chest Pain Time Seen by Provider: 15:28 Travel History International Travel<30 days: No Contact w/Intl Traveler<30days: No Traveled to known affect area: No History of Present Illness HPI 26 y/o male presents with central chest pain that is been present for the past couple of days. He states that he took his Coumadin yesterday morning but has not taken it yet this morning. He states he needs refills of his medications as he has ran out of them. He states that he has history of pulmonary embolism and when he had one of those they thought he maybe had a small heart attack and placed him on blood thinners for the blood clot. He states that he hasn't had a heart attack or heart issues and he didn't have a blood clot. He states no other concurrent complaints at this time. He does state he also has history of pneumothorax but this feels different. Quality pain is sharp. Severity is moderate. Pain is worse with movement. He denies specific other modifying factors. 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 x 4) Myocardial Infarction: Yes Sleep Apnea: No Thyroid Disease: Yes (hyperthyroidism) Tetanus Vaccination: < 5 Years Past Surgical History Other Surgery: Yes (lung surgeries) Social History Alcohol Use: No Tobacco Use: Yes Substance Use: No Allergies-Medications (Allergen,Severity, Reaction): Coded Allergies: No Known Allergies (Unverified , 11/15/16) Reported Meds & Prescriptions Reported Meds & Active Scripts Active Lovenox Inj (Enoxaparin Sodium) 60 Mg/0.6 Ml Syr 60 Mg SQ DAILY 2 Days Oxycodone (Oxycodone HCl) 10 Mg Tab 10 Mg PO Q6H PRN Methimazole 5 Mg Tab 5 Mg PO DAILY 5 Days Benefiber (Wheat Dextrin) 144 Gm Powder 1 Pkt PO DAILY Probiotic (Lactobacillus Acidophilus) 1 Cap Cap 1 Cap PO BIDAC Protonix (Pantoprazole Sodium) 40 Mg Tab 40 Mg PO DAILY Reported Gabapentin 300 Mg Cap 300 Mg PO TID Coumadin (Warfarin) 5 Mg Tab 5 Mg PO DAILY Review of Systems Except as stated in HPI: all other systems reviewed are Neg Physical Exam Narrative GENERAL: Well-nourished, well-developed patient. SKIN: Warm and dry. HEAD: Normocephalic and atraumatic. EYES: No injection or drainage. ENT: No nasal drainage noted. NECK: Supple, trachea midline. CARDIOVASCULAR: Regular rate and rhythm RESPIRATORY: Breath sounds equal bilaterally. No accessory muscle use. GASTROINTESTINAL: Abdomen soft, non-tender, nondistended. EXTREMITIES: No edema. NEUROLOGICAL: Awake and alert. Motor and sensory grossly within normal limits. Normal speech. Data Data Last Documented VS Vital Signs Date Time Temp Pulse Resp B/P Pulse Ox O2 Delivery O2 Flow Rate FiO2 11/15/16 15:00 98.2 98 12 142/75 100 Orders Electrocardiogram (11/15/16 15:01) Complete Blood Count With Diff (11/15/16 15:01) Ckmb (Isoenzyme) Profile (11/15/16 15:01) Troponin I (11/15/16 15:01) Comprehensive Metabolic Panel (11/15/16 15:04) Magnesium (Mg) (11/15/16 15:04) Chest, Pa & Lat (11/15/16 15:01) Prothrombin Time / Inr (Pt) (11/15/16 15:07) Act Partial Throm Time (Ptt) (11/15/16 15:07) D-Dimer (11/15/16 15:15) Labs Laboratory Tests Test 11/15/16 15:15 White Blood Count 7.0 TH/MM3 Red Blood Count 4.98 MIL/MM3 Hemoglobin 14.2 GM/DL Hematocrit 42.7 % Mean Corpuscular Volume 85.8 FL Mean Corpuscular Hemoglobin 28.6 PG Mean Corpuscular Hemoglobin 33.3 % Concent Red Cell Distribution Width 14.0 % Platelet Count 195 TH/MM3 Mean Platelet Volume 7.6 FL Neutrophils (%) (Auto) 74.6 % Lymphocytes (%) (Auto) 15.9 % Monocytes (%) (Auto) 7.9 % Eosinophils (%) (Auto) 0.9 % Basophils (%) (Auto) 0.7 % Neutrophils # (Auto) 5.2 TH/MM3 Lymphocytes # (Auto) 1.1 TH/MM3 Monocytes # (Auto) 0.6 TH/MM3 Eosinophils # (Auto) 0.1 TH/MM3 Basophils # (Auto) 0.1 TH/MM3 CBC Comment DIFF FINAL Differential Comment Prothrombin Time 37.5 SEC Prothromb Time International 3.2 RATIO Ratio Activated Partial 42.0 SEC Thromboplast Time D-Dimer Quantitative (PE/DVT) LESS THAN 0.19 MG/L FEU Sodium Level 142 MEQ/L Potassium Level 3.7 MEQ/L Chloride Level 106 MEQ/L Carbon Dioxide Level 27.0 MEQ/L Anion Gap 9 MEQ/L Blood Urea Nitrogen 15 MG/DL Creatinine 1.06 MG/DL Estimat Glomerular Filtration 83 ML/MIN Rate Random Glucose 99 MG/DL Calcium Level 8.9 MG/DL Magnesium Level 2.1 MG/DL Total Bilirubin 0.4 MG/DL Aspartate Amino Transf 11 U/L (AST/SGOT) Alanine Aminotransferase 18 U/L (ALT/SGPT) Alkaline Phosphatase 58 U/L Total Protein 7.5 GM/DL Albumin 4.3 GM/DL MDM Medical Decision Making Medical Screen Exam Complete: Yes Emergency Medical Condition: Yes Medical Record Reviewed: Yes (past history confirmed) Interpretation(s) CBC & BMP Diagram 11/15/16 15:15 Last 24 hours Impressions Chest X-Ray 11/15/16 1501 Signed Impressions: Service Date/Time: Tuesday, November 15, 2016 15:33 - CONCLUSION: Biapical pleuroparenchymal changes are stable and likely chronic. Usman Thao MD Differential Diagnosis PE, gastritis, pneumothorax, musculoskeletal Narrative Course Will follow blood work and imaging ordered and reevaluate Patient is therapeutic on his Coumadin and d-dimer is negative, chest x-ray without pneumothorax, patient is stable for outpatient follow-up. We'll provide medication refills Diagnosis Primary Impression: Chest pain Qualified Code: R07.9 - Chest pain, unspecified type Patient Instructions: General Instructions Additional Instructions: return as needed, tylenol as needed, follow with primary friday Med/Other Pt SpecificInfo: Prescription(s) given Scripts Pantoprazole (Protonix)40 Mg Tab40 Mg PO DAILY #30 TAB Ref 1 Prov:Rabia To MD 11/15/16 Warfarin (Coumadin)5 Mg Tab5 Mg PO DAILY #30 TAB Ref 0 Prov:Rabia To MD 11/15/16 Disposition: 01 DISCHARGE HOME Condition: Stable Rabia To MD Nov 15, 2016 17:02
[2016-11-15] MEDS ORDERED: COUM5TAB PO (18:07)
[2016-11-15] MEDS ORDERED: PROT40TA PO (18:07)
[2016-11-15 18:35] VITALS: BP 138/72; PULSE 90; RESP 12; TEMP 98.2; O2SAT 100
[2016-11-16 01:06] LABS: CREATINE KINASE 100 U/L (39-308)
--- NOTE | 2016-11-16 17:15 | EKG ---
Date Performed: 11/15/2016 Time Performed: 15:09:12 PTAGE: 26 years EKG: Sinus rhythm WITH SHORT [place] INTERVAL MARKED RIGHT AXIS DEVIATION ABNORMAL ECG Compared to prior tracing no signifi cant change PREVIOUS TRACING : 11/09/2016 23.50 DOCTOR: Mathew Enriquez Interpretating Date/Time 11/16/2016 17:12:56
== END 2016-11-15 18:36 | disposition home or self-care (01) ==
LOC: NEPE 14:56
DX: R07.9 Chest pain, unspecified (principal); M32.9 Systemic lupus erythematosus, unspecified; E05.90 Thyrotoxicosis, unspecified without thyrotoxic crisis or storm; I25.2 Old myocardial infarction; R94.31 Abnormal electrocardiogram [ECG] [EKG]; Z72.0 Tobacco use; Z86.711 Personal history of pulmonary embolism; Z79.899 Other long term (current) drug therapy
CPT/HCPCS: 71020; 80053; 82550; 83735; 84484; 85025; 85379; 85610; 85730; 93005

== ENCOUNTER 2016-11-25 06:01 | Emergency (ER) | payer OTHER ==
[2016-11-25 06:03] VITALS: BP 116/74; PULSE 82; RESP 16; TEMP 98.7; O2SAT 100
--- NOTE | 2016-11-25 06:38 | PD ---
HPI Chief Complaint: Chest Pain Time Seen by Provider: 06:16 Travel History International Travel<30 days: No Contact w/Intl Traveler<30days: No Traveled to known affect area: No History of Present Illness HPI Patient is a 36-year-old male with history of lupus, PE, pneumothorax, presents to emergency room with complaints of chest pains. Reports that he began to have substernal chest pain around 10:30 PM. Patient reports that chest pain is sharp and stabbing in nature. Patient reports that he has had history of multiple pulmonary embolisms in the past, reports that he is currently on Coumadin for his PE. Patient reports that when his INR is low, he self administers Lovenox. Patient concerned that he may have another PE at this time. Patient denies any diaphoresis, nausea or vomiting, reports that his chest pain is similar to his previous episodes. Patient reports that he has been compliant with his medications. PFSH Past Medical History Hx Anticoagulant Therapy: Yes (COUMADIN) Asthma: No Blood Disorders: Yes Heart Rhythm Problems: No Cancer: Yes (colon) Cardiovascular Problems: Yes (2012) High Cholesterol: No Chest Pain: Yes Congestive Heart Failure: No COPD: No Diabetes: No Endocrine: Yes (lupus) Genitourinary: No Immune Disorder: No Musculoskeletal: Yes (lupus anticoagulant) Neurologic: No Psychiatric: No Reproductive: No Respiratory: Yes (hx of PE x 14 and Pneumothorax x 4) Myocardial Infarction: Yes Sleep Apnea: No Thyroid Disease: Yes (hyperthyroidism) Tetanus Vaccination: Unknown Influenza Vaccination: No Past Surgical History Other Surgery: Yes (lung surgeries, chest tube x4) Social History Alcohol Use: No Tobacco Use: Yes Substance Use: No Allergies-Medications (Allergen,Severity, Reaction): Coded Allergies: No Known Allergies (Unverified , 11/25/16) Reported Meds & Prescriptions Reported Meds & Active Scripts Active Protonix (Pantoprazole Sodium) 40 Mg Tab 40 Mg PO DAILY Coumadin (Warfarin) 5 Mg Tab 5 Mg PO DAILY Lovenox Inj (Enoxaparin Sodium) 60 Mg/0.6 Ml Syr 60 Mg SQ DAILY 2 Days Oxycodone (Oxycodone HCl) 10 Mg Tab 10 Mg PO Q6H PRN Methimazole 5 Mg Tab 5 Mg PO DAILY 5 Days Reported Gabapentin 300 Mg Cap 300 Mg PO TID Review of Systems General / Constitutional: No: Fever Eyes: No: Visual changes HENT: No: Headaches Cardiovascular: Positive: Chest Pain or Discomfort Respiratory: Positive: Shortness of Breath Gastrointestinal: No: Abdominal Pain Genitourinary: No: Dysuria Musculoskeletal: No: Pain Skin: No Rash Neurologic: No: Weakness Psychiatric: No: Depression Endocrine: No: Polydipsia Hematologic/Lymphatic: No: Easy Bruising Physical Exam Narrative GENERAL: NAD SKIN: Focused skin assessment warm/dry. HEAD: Atraumatic. Normocephalic. EYES: Pupils equal and round. No scleral icterus. No injection or drainage. ENT: No nasal bleeding or discharge. Mucous membranes pink and moist. NECK: Trachea midline. No JVD. CARDIOVASCULAR: Regular rate and rhythm. No murmur appreciated. RESPIRATORY: No accessory muscle use. Clear to auscultation. Breath sounds equal bilaterally. GASTROINTESTINAL: Abdomen soft, non-tender, nondistended. Hepatic and splenic margins not palpable. MUSCULOSKELETAL: No obvious deformities. No clubbing. No cyanosis. No edema. NEUROLOGICAL: Awake and alert. No obvious cranial nerve deficits. Motor grossly within normal limits. Normal speech. PSYCHIATRIC: Appropriate mood and affect; insight and judgment normal. Data Data Last Documented VS Vital Signs Date Time Temp Pulse Resp B/P (MAP) Pulse Ox O2 Delivery O2 Flow Rate FiO2 11/25/16 06:21 100 Room Air 11/25/16 06:03 98.7 82 16 116/74 (88) Orders Orders Ckmb (Isoenzyme) Profile (11/25/16 06:33) Complete Blood Count With Diff (11/25/16 06:33) Comprehensive Metabolic Panel (11/25/16 06:33) D-Dimer (11/25/16 06:33) Prothrombin Time / Inr (Pt) (11/25/16 06:33) Act Partial Throm Time (Ptt) (11/25/16 06:33) Troponin I (11/25/16 06:33) Chest, Single Ap (11/25/16 06:33) Ecg Monitoring (11/25/16 06:33) Iv Access Insert/Monitor (11/25/16 06:33) Oximetry (11/25/16 06:33) Sodium Chloride 0.9% Flush (Ns Flush) (11/25/16 06:45) Sodium Chlorid 0.9% 500 Ml Inj (Ns 500 M (11/25/16 06:45) Ketorolac Inj (Toradol Inj) (11/25/16 06:45) MDM Medical Decision Making Medical Screen Exam Complete: Yes Emergency Medical Condition: Yes Interpretation(s) EKG at 0612: Normal sinus rhythm at 74 bpm, QT/QTC 371/39, no acute ST-T wave changes Vital Signs Date Time Temp Pulse Resp B/P (MAP) Pulse Ox O2 Delivery O2 Flow Rate FiO2 11/25/16 06:21 100 Room Air 11/25/16 06:03 98.7 82 16 116/74 (88) 100 Room Air Differential Diagnosis Differential includes PE, ACS, arrhythmia, electrolyte abnormality, pneumothorax Narrative Course Patient is a 26-year-old male who presents to emergency room complaints of chest pain. Onset of his chest pain was last night around 10:30 PM. Patient reports sharp and stabbing pains to his midsternum, that he has been feeling short of breath with this chest pain. Patient with history of pulmonary emboli , currently on Coumadin. Patient concerned that he may have worsening PE at this time. 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 Lab work including INR ordered. X-ray chest ordered, plan to monitor patient. Mis Angela DO Nov 25, 2016 06:38
[2016-11-25] MEDS ORDERED: SODIUM CHLORID 0.9% 500 ML INJ 500 ML IV ONE (06:45)
[2016-11-25] MEDS ORDERED: KETOROLAC TROMETHAMINE 30 MG/ML (IVP) VIAL IV PUSH ONE (06:45)
[2016-11-25] MEDS ORDERED: SODIUM CHLORIDE 0.9% FLUSH 10 ML FLUSH IVF PRN (06:45)
[2016-11-25 07:04] VITALS: BP 118/76; PULSE 70; RESP 16; O2SAT 99
[2016-11-25 07:07] LABS: AUTOMATED NEUTROPHIL # 6.8 TH/MM3 (1.8-7.7); BASOPHIL # 0.1 TH/MM3 (0-0.2); BASOPHIL % 0.7 % (0.0-2.0); EOSINOPHIL # 0.2 TH/MM3 (0-0.4); EOSINOPHIL % 1.7 % (0.0-4.0); HEMATOCRIT 46.6 % (39.0-51.0); HEMO FLAGS DIFF FINAL; LYMPH % 18.2 % (9.0-44.0); LYMPHOCYTE # 1.7 TH/MM3 (1.0-4.8); MEAN CELL VOLUME 85.7 FL (80.0-100.0); MEAN CORPUSCULAR HEMOGLOBIN 28.7 PG (27.0-34.0); MEAN CORPUSCULAR HGB CONC 33.4 % (32.0-36.0); MONO % 7.6 % (0.0-8.0); NEUT % 71.8 % (16.0-70.0); PLATELET COUNT 215 TH/MM3 (150-450); RED BLOOD COUNT 5.44 MIL/MM3 (4.50-5.90); RED CELL DISTRIBUTION WIDTH 14.2 % (11.6-17.2); WHITE BLOOD COUNT 9.5 TH/MM3 (4.0-11.0)
--- NOTE | 2016-11-25 07:18 | RADRPT ---
EXAM DATE/TIME: 11/25/2016 06:57 [facility] COMPARISON: CHEST PA & LAT, November 15, 2016, 15:33. INDICATIONS : Chest pain. MEDICAL HISTORY : Lupus. SURGICAL HISTORY : None. ENCOUNTER: Initial ACUITY: 2 days PAIN SCORE: 8/10 LOCATION: [facility] chest FINDINGS: A single view of the chest demonstrates the lungs to be symmetrically aerated without evidence of mas s, infiltrate or effusion. The cardiomediastinal contours are unremarkable. Osseous structures are intact. Stable bilateral apical pleural-parenchymal scarring CONCLUSION: No acute disease. Kelvin Chan MD on November 25, 2016 at 7:16 Board Certified Radiologist. This report was verified electronically.
[2016-11-25 07:20] LABS: APTT (PATIENT) 45.2 SEC (24.3-30.1); INTERNATIONAL NORMALIZED RATIO 3.1 RATIO; PROTHROMBIN TIME - PATIENT 36.1 SEC (9.8-11.6)
[2016-11-25 07:30] LABS: ANION GAP 8 MEQ/L (5-15); AST (GOT) 14 U/L (15-37); BICARBONATE 26.6 MEQ/L (21.0-32.0); CHLORIDE 107 MEQ/L (98-107); GLOMERULAR FILTRATION RATE 82 ML/MIN (>89); POTASSIUM 3.9 MEQ/L (3.5-5.1); SODIUM (NA) 142 MEQ/L (136-145)
--- NOTE | 2016-11-25 07:31 | PD ---
Physical Exam Date Seen by Provider: Nov 25, 2016 Time Seen by Provider: 07:00 Narrative The patient was signed out to me at change of shift by Dr. Angela. This is a 18- year-old male with history of pulmonary him of this, presents here with complaints of sharp intermittent chest pain. The patient is concerned that he has a recurrent PE. The patient is on Coumadin. He reports that he's been taking his medications as prescribed. Enzymes are within normal limits. CT scanned to rule out pulmonary embolus is pending. Data Data Last Documented VS Vital Signs Date Time Temp Pulse Resp B/P (MAP) Pulse Ox O2 Delivery O2 Flow Rate FiO2 11/25/16 07:04 70 16 118/76 (90) 99 Room Air 11/25/16 06:03 98.7 Orders Orders Ckmb (Isoenzyme) Profile (11/25/16 06:33) Complete Blood Count With Diff (11/25/16 06:33) Comprehensive Metabolic Panel (11/25/16 06:33) D-Dimer (11/25/16 06:33) Prothrombin Time / Inr (Pt) (11/25/16 06:33) Act Partial Throm Time (Ptt) (11/25/16 06:33) Troponin I (11/25/16 06:33) Chest, Single Ap (11/25/16 06:33) Ecg Monitoring (11/25/16 06:33) Iv Access Insert/Monitor (11/25/16 06:33) Oximetry (11/25/16 06:33) Sodium Chloride 0.9% Flush (Ns Flush) (11/25/16 06:45) Sodium Chlorid 0.9% 500 Ml Inj (Ns 500 M (11/25/16 06:45) Ketorolac Inj (Toradol Inj) (11/25/16 06:45) Ct Pulmonary Angiogram (11/25/16 06:58) Electrocardiogram (11/25/16 06:12) Labs Laboratory Tests Test 11/25/16 06:40 White Blood Count 9.5 TH/MM3 Red Blood Count 5.44 MIL/MM3 Hemoglobin 15.6 GM/DL Hematocrit 46.6 % Mean Corpuscular Volume 85.7 FL Mean Corpuscular Hemoglobin 28.7 PG Mean Corpuscular Hemoglobin Concent 33.4 % Red Cell Distribution Width 14.2 % Platelet Count 215 TH/MM3 Mean Platelet Volume 7.7 FL Neutrophils (%) (Auto) 71.8 % Lymphocytes (%) (Auto) 18.2 % Monocytes (%) (Auto) 7.6 % Eosinophils (%) (Auto) 1.7 % Basophils (%) (Auto) 0.7 % Neutrophils # (Auto) 6.8 TH/MM3 Lymphocytes # (Auto) 1.7 TH/MM3 Monocytes # (Auto) 0.7 TH/MM3 Eosinophils # (Auto) 0.2 TH/MM3 Basophils # (Auto) 0.1 TH/MM3 CBC Comment DIFF FINAL Differential Comment Prothrombin Time 36.1 SEC Prothromb Time International Ratio 3.1 RATIO Activated Partial Thromboplast Time 45.2 SEC D-Dimer Quantitative (PE/DVT) LESS THAN 0.19 MG/L FEU Blood Urea Nitrogen 12 MG/DL Creatinine 1.07 MG/DL Random Glucose 97 MG/DL Total Protein 7.9 GM/DL Albumin 4.4 GM/DL Calcium Level 9.3 MG/DL Alkaline Phosphatase 57 U/L Aspartate Amino Transf (AST/SGOT) 14 U/L Alanine Aminotransferase (ALT/SGPT) 17 U/L Total Bilirubin 0.5 MG/DL Sodium Level 142 MEQ/L Potassium Level 3.9 MEQ/L Chloride Level 107 MEQ/L Carbon Dioxide Level 26.6 MEQ/L Anion Gap 8 MEQ/L Estimat Glomerular Filtration Rate 82 ML/MIN Total Creatine Kinase 92 U/L Troponin I LESS THAN 0.02 NG/ML [facility] Medical Record Reviewed: Yes Supervised Visit with ANGELA: No Narrative Course ACS versus recurrent PE versus musculoskeletal versus esophagitis Critical Care Narrative This is a 26-year-old male with history of lupus antibody, previous PEs, who presents today with complaints of sharp intermittent chest pain since last night. The patient's EKG and cardiac enzymes are within normal limits. The patient has an INR 3.1. His d-dimer is negative. The patient does not wish to have a repeat CT scan given the fact that his INR is 3.1 and his d-dimer is negative. He is comfortable being discharged. He is requested a refill of his methimazole and a pain medicine. He'll be given information for these [facility]. Diagnosis Primary Impression: Atypical chest pain Additional Impressions: History of pulmonary embolism History of discoid lupus erythematosus suspected chest wall pain Referrals: [facility] Additional Instruction: Return if feeling worse. Follow up with the [facility]. Med/Other Pt SpecificInfo: Prescription(s) given Scripts Tramadol (Ultram) 50 Mg Tab 50 MG PO Q8H Y for PAIN, #15 TAB 0 Refills Prov: Seven Catalan MD 11/25/16 Methimazole (Methimazole) 5 Mg Tab 5 MG PO DAILY for Thyroid, #30 TAB 0 Refills Prov: Seven Catalan MD 11/25/16 Disposition: 01 DISCHARGE HOME Condition: Stable Seven Catalan MD Nov 25, 2016 07:31
[2016-11-25 07:41] LABS: ALKALINE PHOSPHATASE 57 U/L (45-117); ALT (GPT) 17 U/L (12-78); TOTAL BILIRUBIN ADULT 0.5 MG/DL (0.2-1.0)
[2016-11-25 07:43] LABS: BLOOD UREA NITROGEN 12 MG/DL (7-18); CREATINE KINASE 92 U/L (39-308)
--- NOTE | 2016-11-25 07:48 | EKG ---
Date Performed: 11/25/2016 Time Performed: 06:12:13 PTAGE: 26 years EKG: Sinus rhythm RIGHT AXIS DEVIATION ABNORMAL ECG PREVIOUS TRACING : 11/15/2016 15.09 No significant change from previous tracing noted. DOCTOR: Jonathan Melendez Interpretating Date/Time 11/25/2016 07:46:54
[2016-11-25] MEDS ORDERED: ULTR50TA5 PO (09:12)
[2016-11-25] MEDS ORDERED: METH5TAB4 PO (09:12)
[2016-11-25 09:43] VITALS: BP 123/64
== END 2016-11-25 09:46 | disposition home or self-care (01) ==
LOC: NEPE 06:01
DX: R07.89 Other chest pain (principal); M32.9 Systemic lupus erythematosus, unspecified; I25.2 Old myocardial infarction; E05.90 Thyrotoxicosis, unspecified without thyrotoxic crisis or storm; Z86.711 Personal history of pulmonary embolism; Z79.01 Long term (current) use of anticoagulants
CPT/HCPCS: 71010; 80053; 82550; 84484; 85025; 85379; 85610; 85730; 93005; 96361; 96374; 99285; J1885; J7040

== ENCOUNTER 2016-12-20 21:48 | Emergency (ER) | payer SELFPAY ==
[~2016-12-20] VITALS: Ht 188 cm; Wt 64.1 kg
[~2016-12-20 21:48] MED LIST changes: -LACTCAP8 PO; +ULTR50TA5 PO; -WHEA1POW9 PO
[2016-12-20] MEDS ORDERED: IOHEXOL 350 MG/ML 10 ML VIAL (for RAD DIAG) IVCONTRAST ONE (21:49)
[2016-12-20 21:54] VITALS: BP 127/76; PULSE 81; RESP 20; TEMP 98.6; O2SAT 99
[2016-12-20] MEDS ORDERED: SODIUM CHLORIDE 0.9% FLUSH 10 ML FLUSH IVF PRN (22:15)
[2016-12-20] MEDS ORDERED: ONDANSETRON HCL 4 MG/2 ML VIAL IV PUSH ONE (22:15)
[2016-12-20] MEDS ORDERED: HYDROmorphone HCL PF 1 MG/ML VIAL IV PUSH ONE (22:15)
--- NOTE | 2016-12-20 22:15 | PD ---
HPI Chief Complaint: Chest Pain Time Seen by Provider: 21:54 Travel History International Travel<30 days: No Contact w/Intl Traveler<30days: No Traveled to known affect area: No History of Present Illness HPI H/O LUPUS ANTICOAGULANT, AND HAS HAD MULTIPLE PE AND PTX BY HISTORY....PATIENT C /O SHARP CP, ONSET SINCE THIS AM, WORSENED BY DEEP BREATHING, AND STATES THAT HE HAS BEEN OFF HIS COUMADIN FOR PAST 2-3 DAYS. PATIENT RECENTLY MOVED FROM [place]....DENIES COUGH/SNOW/FEVER/NV/D/ PFSH Past Medical History Asthma: No Blood Disorders: Yes Heart Rhythm Problems: No Cancer: Yes (colon) Cardiovascular Problems: Yes (hx 4 pneumothorax) High Cholesterol: No Chest Pain: Yes Congestive Heart Failure: No COPD: No Diabetes: No Endocrine: Yes (lupus) Genitourinary: No Immune Disorder: No Musculoskeletal: Yes (lupus anticoagulant) Neurologic: No Psychiatric: No Reproductive: No Respiratory: Yes (hx of PE x 14 and Pneumothorax x 4) Myocardial Infarction: Yes Sleep Apnea: No Thyroid Disease: Yes (hyperthyroidism) Past Surgical History Other Surgery: Yes (lung surgeries, chest tube x4) Social History Alcohol Use: No Tobacco Use: Yes Substance Use: No Allergies-Medications (Allergen,Severity, Reaction): Coded Allergies: No Known Allergies (Unverified , 11/25/16) Reported Meds & Prescriptions Reported Meds & Active Scripts Active Warfarin 5 Mg Tab 5 Mg PO DAILY Ultram (Tramadol HCl) 50 Mg Tab 50 Mg PO Q8H PRN Protonix (Pantoprazole Sodium) 40 Mg Tab 40 Mg PO DAILY Lovenox Inj (Enoxaparin Sodium) 60 Mg/0.6 Ml Syr 60 Mg SQ DAILY 2 Days Oxycodone (Oxycodone HCl) 10 Mg Tab 10 Mg PO Q6H PRN Methimazole 5 Mg Tab 5 Mg PO DAILY 5 Days Reported Gabapentin 300 Mg Cap 300 Mg PO TID Review of Systems Except as stated in HPI: all other systems reviewed are Neg Cardiovascular: Positive: Chest Pain or Discomfort Physical Exam Narrative GENERAL: SKIN: Warm and dry. HEAD: Atraumatic. Normocephalic. EYES: Pupils equal and round. No scleral icterus. No injection or drainage. ENT: No nasal bleeding or discharge. Mucous membranes pink and moist. NECK: Trachea midline. No JVD. CARDIOVASCULAR: Regular rate and rhythm. RESPIRATORY: No accessory muscle use. Clear to auscultation. Breath sounds equal bilaterally. GASTROINTESTINAL: Abdomen soft, non-tender, nondistended. MUSCULOSKELETAL: Extremities without clubbing, cyanosis, or edema. No obvious deformities. NEUROLOGICAL: Awake and alert. No obvious cranial nerve deficits. Motor grossly within normal limits. Five out of 5 muscle strength in the arms and legs. Normal speech. PSYCHIATRIC: Appropriate mood and affect; insight and judgment normal. Data Data Last Documented VS Vital Signs Date Time Temp Pulse Resp B/P (MAP) Pulse Ox O2 Delivery O2 Flow Rate FiO2 12/21/16 00:54 98.0 64 18 113/68 (83) 99 12/21/16 00:50 Room Air 12/20/16 22:27 2.00 Orders Orders Electrocardiogram (12/20/16 22:02) B-Type Natriuretic Peptide (12/20/16 22:02) Ckmb (Isoenzyme) Profile (12/20/16 22:02) Complete Blood Count With Diff (12/20/16 22:02) Comprehensive Metabolic Panel (12/20/16 22:02) D-Dimer (12/20/16 22:02) Prothrombin Time / Inr (Pt) (12/20/16 22:02) Act Partial Throm Time (Ptt) (12/20/16 22:02) Troponin I (12/20/16 22:02) Lipase (12/20/16 22:02) Ecg Monitoring (12/20/16 22:02) Bilateral Bp Monitoring (12/20/16 22:02) Iv Access Insert/Monitor (12/20/16 22:02) Oximetry (12/20/16 22:02) Oxygen Administration (12/20/16 22:02) Sodium Chloride 0.9% Flush (Ns Flush) (12/20/16 22:15) Hydromorphone Pf Inj (Dilaudid Pf Inj) (12/20/16 22:15) Ondansetron Inj (Zofran Inj) (12/20/16 22:15) Ct Pulmonary Angiogram (12/20/16 22:02) Iohexol 350 Inj (Omnipaque 350 Inj) (12/20/16 21:49) Ketorolac Inj (Toradol Inj) (12/20/16 23:15) Warfarin (Coumadin) (12/20/16 23:15) Labs Laboratory Tests Test 12/20/16 22:00 White Blood Count 8.6 TH/MM3 Red Blood Count 5.12 MIL/MM3 Hemoglobin 14.4 GM/DL Hematocrit 43.2 % Mean Corpuscular Volume 84.4 FL Mean Corpuscular Hemoglobin 28.0 PG Mean Corpuscular Hemoglobin Concent 33.2 % Red Cell Distribution Width 12.9 % Platelet Count 213 TH/MM3 Mean Platelet Volume 7.5 FL Neutrophils (%) (Auto) 70.4 % Lymphocytes (%) (Auto) 21.4 % Monocytes (%) (Auto) 7.0 % Eosinophils (%) (Auto) 0.6 % Basophils (%) (Auto) 0.6 % Neutrophils # (Auto) 6.0 TH/MM3 Lymphocytes # (Auto) 1.8 TH/MM3 Monocytes # (Auto) 0.6 TH/MM3 Eosinophils # (Auto) 0.1 TH/MM3 Basophils # (Auto) 0.1 TH/MM3 CBC Comment DIFF FINAL Differential Comment Prothrombin Time 21.4 SEC Prothromb Time International Ratio 1.9 RATIO Activated Partial Thromboplast Time 37.6 SEC D-Dimer Quantitative (PE/DVT) LESS THAN 0.19 MG/L FEU Blood Urea Nitrogen 14 MG/DL Creatinine 1.10 MG/DL Random Glucose 62 MG/DL Total Protein 7.8 GM/DL Albumin 4.2 GM/DL Calcium Level 8.9 MG/DL Alkaline Phosphatase 55 U/L Aspartate Amino Transf (AST/SGOT) 9 U/L Alanine Aminotransferase (ALT/SGPT) 18 U/L Total Bilirubin 0.5 MG/DL Sodium Level 140 MEQ/L Potassium Level 3.1 MEQ/L Chloride Level 104 MEQ/L Carbon Dioxide Level 28.9 MEQ/L Anion Gap 7 MEQ/L Estimat Glomerular Filtration Rate 80 ML/MIN Total Creatine Kinase 78 U/L Troponin I LESS THAN 0.02 NG/ML B-Type Natriuretic Peptide 6 PG/ML Lipase 124 U/L MDM Medical Decision Making Medical Screen Exam Complete: Yes Emergency Medical Condition: Yes Medical Record Reviewed: Yes Differential Diagnosis PNA V PTX V PE Narrative Course no active pe / pna found on ct chest...patient's inr is near therapeutic, so patient will be given a po dose in ed, unnecessary to use any lovenox/heparin at tis point Diagnosis Primary Impression: PLEURISY Patient Instructions: General Instructions, Pleurisy (DC) Scripts Warfarin (Warfarin) 5 Mg Tab 5 MG PO DAILY for Blood Clot Prevention, #30 TAB 0 Refills Prov: Ron Pabon MD 12/20/16 Disposition: 01 DISCHARGE HOME Condition: Stable Ron Pabon MD Dec 20, 2016 22:15
[2016-12-20 22:25] VITALS: O2SAT 100
[2016-12-20 22:25] LABS: BASOPHIL # 0.1 TH/MM3 (0-0.2); BASOPHIL % 0.6 % (0.0-2.0); EOSINOPHIL # 0.1 TH/MM3 (0-0.4); EOSINOPHIL % 0.6 % (0.0-4.0); HEMATOCRIT 43.2 % (39.0-51.0); HEMO FLAGS DIFF FINAL; LYMPH % 21.4 % (9.0-44.0); LYMPHOCYTE # 1.8 TH/MM3 (1.0-4.8); MEAN CELL VOLUME 84.4 FL (80.0-100.0); MEAN CORPUSCULAR HGB CONC 33.2 % (32.0-36.0); NEUT % 70.4 % (16.0-70.0); PLATELET COUNT 213 TH/MM3 (150-450); RED BLOOD COUNT 5.12 MIL/MM3 (4.50-5.90); RED CELL DISTRIBUTION WIDTH 12.9 % (11.6-17.2); WHITE BLOOD COUNT 8.6 TH/MM3 (4.0-11.0)
[2016-12-20 22:33] LABS: CHLORIDE 104 MEQ/L (98-107); POTASSIUM 3.1 MEQ/L (3.5-5.1); SODIUM (NA) 140 MEQ/L (136-145)
[2016-12-20 22:36] LABS: ANION GAP 7 MEQ/L (5-15); BICARBONATE 28.9 MEQ/L (21.0-32.0)
[2016-12-20 22:37] LABS: BLOOD UREA NITROGEN 14 MG/DL (7-18)
[2016-12-20 22:39] LABS: ALT (GPT) 18 U/L (12-78); APTT (PATIENT) 37.6 SEC (24.3-30.1); AST (GOT) 9 U/L (15-37); INTERNATIONAL NORMALIZED RATIO 1.9 RATIO; PROTHROMBIN TIME - PATIENT 21.4 SEC (9.8-11.6)
[2016-12-20 22:40] LABS: GLOMERULAR FILTRATION RATE 80 ML/MIN (>89)
[2016-12-20 22:41] LABS: TOTAL BILIRUBIN ADULT 0.5 MG/DL (0.2-1.0)
[2016-12-20 22:42] LABS: ALKALINE PHOSPHATASE 55 U/L (45-117)
[2016-12-20 23:06] LABS: CREATINE KINASE 78 U/L (39-308)
--- NOTE | 2016-12-20 23:10 | RADRPT ---
EXAM DATE/TIME: 12/20/2016 22:33 [facility] COMPARISON: CHEST SINGLE AP, November 04, 2016, 9:11. INDICATIONS : Chest pain. History of multiple emboli IV CONTRAST: 74 cc Omnipaque 350 (iohexol) IV RADIATION DOSE: 5.04 CTDIvol (mGy) MEDICAL HISTORY : Carcinoma, colon. Lupus, 14 x embolism, SURGICAL HISTORY : Lung tissue removed, chest tubeX4 ENCOUNTER: Initial ACUITY: 1 day PAIN SCALE: 7/10 LOCATION: Right chest TECHNIQUE: Volumetric scanning of the chest was performed using a pulmonary embolism protocol MIP images were re constructed. Using automated exposure control and adjustment of the mA and/or kV according to patien t size, radiation dose was kept as low as reasonably achievable to obtain optimal diagnostic quality images. DICOM format image data is available electronically for review and comparison. Follow-up recommendations for detected pulmonary nodules are based at a minimum on nodule size and pa tient risk factors according to Fleischner Society Guidelines. FINDINGS: PULMONARY ARTERIES: No filling defects are seen in the pulmonary arteries through the segmental level. LUNGS: There is biapical pleural-parenchymal scarring with some regional calcification posteriorly on the le ft. Scarring is also seen in the left lingula. Linear line of fine surgical lia are seen in the s uperior segment of both lower lobes. PLEURAE: There is no pleural thickening or pleural effusion. MEDIASTINUM: There is good visualization of the great vessels of the middle mediastinum. No evidence of mediastin al or hilar adenopathy/mass. MUSCULOSKELETAL: Within normal limits for patient age. MISCELLANEOUS: The visualized upper abdominal organs demonstrate no acute abnormality. CONCLUSION: 1. I do not see an acute infiltrate or pulmonary embolus to explain current clinical symptoms. 2. However, there is symmetric biapical pleural parenchymal scarring with regional calcification, unu sual in a 26-year-old and possibly related to an old granulomatous or inflammatory process. There is also evidence of prior surgery with fine surgical lia in the superior segments of both lower lobe s. Ron Koch MD on December 20, 2016 at 23:00 Board Certified Radiologist. This report was verified electronically.
[2016-12-20] MEDS ORDERED: KETOROLAC TROMETHAMINE 30 MG/ML (IVP) VIAL IV PUSH ONE (23:15)
[2016-12-20] MEDS ORDERED: WARFARIN SOD 10 MG TAB PO ONE (23:15)
[2016-12-20] MEDS ORDERED: CEFD300C PO (23:38)
[2016-12-20] MEDS ORDERED: ULTR50TA5 PO (23:38)
[2016-12-20] MEDS ORDERED: WARF-23 PO (23:38)
[2016-12-20 23:54] VITALS: BP_SYST 104; BP_SYST 112; BP_DIAS 67; BP_DIAS 72
[2016-12-21 00:50] VITALS: BP 113/68; PULSE 64; RESP 18; TEMP 98; O2SAT 99
[2016-12-21 00:54] VITALS: BP 113/68; TEMP 98
--- NOTE | 2016-12-21 09:17 | EKG ---
Date Performed: 12/20/2016 Time Performed: 21:54:59 PTAGE: 26 years EKG: Sinus rhythm WITH SHORT IN INTERVAL BORDERLINE RIGHT AXIS DEVIATION NONSPECIFIC ST & T-WAVE ABNORMALITY BORDERLIN E ECG Compared to prior electrocardiogram, ST segment and T wave changes are now present PREVIOUS TRACING : 11/25/2016 06.12 DOCTOR: Carlos Rodas Interpretating Date/Time 12/21/2016 09:15:26
== END 2016-12-21 00:58 | disposition home or self-care (01) ==
LOC: PHED 21:48
DX: R09.1 Pleurisy (principal); M32.9 Systemic lupus erythematosus, unspecified; R94.31 Abnormal electrocardiogram [ECG] [EKG]; I25.2 Old myocardial infarction; E05.90 Thyrotoxicosis, unspecified without thyrotoxic crisis or storm; Z86.711 Personal history of pulmonary embolism; Z79.01 Long term (current) use of anticoagulants; Z72.0 Tobacco use
CPT/HCPCS: 71275; 80053; 82550; 83690; 83880; 84484; 85025; 85379; 85610; 85730; 93005; 96374; 96375; 99285; J1170; J1885; J2405; Q9967

== ENCOUNTER 2017-04-04 09:19 | Emergency (ER) | payer SELFPAY ==
[~2017-04-04] VITALS: Ht 188 cm; Wt 62.0 kg
[~2017-04-04 09:19] MED LIST changes: -COUM5TAB PO; +TRAM50 PO; -ULTR50TA5 PO; +WARF-23 PO
[2017-04-04 09:21] VITALS: BP 111/69; PULSE 74; RESP 16; TEMP 97.8; O2SAT 100
[2017-04-04] MEDS ORDERED: CHOL1CAP34 PO (09:34)
[2017-04-04] MEDS ORDERED: DULC100C PO (09:34)
[2017-04-04] MEDS ORDERED: MAGICADU2 SWISH-SWAL (09:43)
[2017-04-04] MEDS ORDERED: PENI500T PO (09:43)
--- NOTE | 2017-04-04 09:44 | PD ---
HPI Chief Complaint: Oral / Dental Pain or Problem Time Seen by Provider: 09:30 Travel History International Travel<30 days: No Contact w/Intl Traveler<30days: No Traveled to known affect area: No History of Present Illness HPI 26-year-old male here for evaluation of left upper dental pain 1 day. He reports, swelling and foul smelling breath. Denies fever or chills. Denies difficulty swelling. The severity is moderate. Aggravated by hot and cold fluids. Some relief with [id number] Tylenol and Aleve. PFSH Past Medical History Hx Anticoagulant Therapy: Yes (coumadin) Asthma: No Blood Disorders: Yes (hx 13 blood clots, lupus anticoagulant disorder) Heart Rhythm Problems: No Cancer: Yes (colon) Cardiovascular Problems: Yes (hx 4 spontaneous pneumothorax) High Cholesterol: No Chest Pain: Yes Congestive Heart Failure: No COPD: No Diabetes: No Diminished Hearing: No Endocrine: Yes (lupus) Gastrointestinal Disorders: No Genitourinary: No Hypertension: No Immune Disorder: No Implanted Vascular Access Dvce: No Musculoskeletal: Yes (lupus anticoagulant) Neurologic: No Psychiatric: No Reproductive: No Respiratory: Yes (hx of PE x 14 and Pneumothorax x 4) Myocardial Infarction: Yes Sleep Apnea: No Thyroid Disease: Yes (hyperthyroidism) Past Surgical History Thoracic Surgery: Yes (bilateral- partial removal of lung tissue) Tonsillectomy: Yes Other Surgery: Yes (lung surgeries, chest tube x4) Social History Alcohol Use: No Tobacco Use: Yes (3 cigarettes a day) Substance Use: No Allergies-Medications (Allergen,Severity, Reaction): Coded Allergies: No Known Allergies (Unverified Adverse Reaction, Unknown, 04/04/17) Reported Meds & Prescriptions Reported Meds & Active Scripts Active Warfarin 5 Mg Tab 5 Mg PO DAILY Oxycodone (Oxycodone HCl) 10 Mg Tab 10 Mg PO Q6H PRN Methimazole 5 Mg Tab 5 Mg PO DAILY 5 Days Reported Vitamin D3 (Cholecalciferol) 50,000 Unit Cap 50,000 Units PO Q7D Gabapentin 300 Mg Cap 300 Mg PO BID Dulcolax Stool Softener (Docusate Sodium) 100 Mg Cap 100 Mg PO BID Review of Systems Except as stated in HPI: all other systems reviewed are Neg General / Constitutional: No: Fever Eyes: No: Visual changes HENT: No: Headaches Cardiovascular: No: Chest Pain or Discomfort Respiratory: No: Shortness of Breath Gastrointestinal: No: Abdominal Pain Genitourinary: No: Dysuria Physical Exam Narrative GENERAL: Alert and well-appearing male. Nontoxic appearing. SKIN: Warm and dry. HEAD: Normocephalic. EYES: No injection or drainage. Mouth: Widespread dental decay. Gum erythema Left upper premolar region. Uvula is midline. Airway is patent. NECK: Supple, trachea midline. No JVD or lymphadenopathy. Data Data Last Documented VS Vital Signs Date Time Temp Pulse Resp B/P (MAP) Pulse Ox O2 Delivery O2 Flow Rate FiO2 04/04/17 09:21 97.8 74 16 111/69 (83) 100 MDM Medical Decision Making Medical Screen Exam Complete: Yes Emergency Medical Condition: Yes Differential Diagnosis Periodontal disease, dental infection, dental abscess, dental caries Narrative Course 26-year-old male here with left upper dental pain 1 day. On exam he has widespread dental decay with some gum erythema and the location of the pain. He 'll be treated for dental infection. Instructed to follow-up with his dentist Diagnosis Primary Impression: Dental infection Referrals: Dentist Scripts Ogmeduzg-Uylztrghwtcywpd-Oolojmmzs Liq (Magic Mouthwash Adult Liq) 120 Ml Susp 10 ML SWISH-SWAL ACHS for Mouth sores, #120 ML 0 Refills Each 5mL contains: Nystatin 200,000units, Diphenhydramine 4.25mg, Viscous Lidocaine 10mg, Avila syrup 0.8 mL Prov: Bonnie Greene 04/04/17 Penicillin V Potassium (Penicillin V Potassium) 500 Mg Tab 500 MG PO Q6H for Infection for 7 Days, #28 TAB 0 Refills Prov: Bonnie Greene 04/04/17 Disposition: 01 DISCHARGE HOME Condition: Stable Bonnie Greene Apr 04, 2017 09:44
== END 2017-04-04 09:57 | disposition home or self-care (01) ==
LOC: PHED 09:19
DX: K04.7 Periapical abscess without sinus (principal); E05.90 Thyrotoxicosis, unspecified without thyrotoxic crisis or storm; M32.9 Systemic lupus erythematosus, unspecified; I25.2 Old myocardial infarction; F17.210 Nicotine dependence, cigarettes, uncomplicated; Z86.711 Personal history of pulmonary embolism; Z79.01 Long term (current) use of anticoagulants
CPT/HCPCS: 99284

== ENCOUNTER 2017-08-10 19:24 | Inpatient (IN) | payer SELFPAY ==
[~2017-08-10 19:24] MED LIST changes: +CHOL1CAP34 PO; +DULC100C PO; -ENOX60P SQ; +MAGICADU2 SWISH-SWAL; +PENI500T PO; -PROT40TA PO; -TRAM50 PO
[2017-08-10] MEDS ORDERED: IOHEXOL 350 MG/ML 10 ML VIAL (for RAD DIAG) IVCONTRAST ONE (19:25)
[2017-08-10 19:27] VITALS: BP 114/64; PULSE 88; RESP 18; TEMP 98.5; O2SAT 100
[2017-08-10 19:54] VITALS: O2SAT 100
--- NOTE | 2017-08-10 20:12 | PD ---
HPI Chief Complaint: Chest Pain Time Seen by Provider: 19:41 Travel History International Travel<30 days: No Contact w/Intl Traveler<30days: No Traveled to known affect area: No History of Present Illness HPI The patient is a 27 year old male who presents to the [facility] emergency department with a history of chest pain in the center of his chest that began yesterday. He reports that the pain is been coming and going. He reports that the pain is sharp in character. He reports the pain is made worse with bending over or taking a deep breath. The patient reports that the pain seems to improve when he just rests. He reports that the pain is similar to when he has had pulmonary embolisms in the past. He has had problems with recurrent pulmonary embolisms in spite of being adequately anticoagulated. He reportedly last had a pulmonary embolism 7 months ago. He reports having history of being positive for lupus anticoagulant. The patient additionally reports having a history of recurrent pneumothoraces, however he reports having surgery for this and has not had one since then, 3 years ago. He denies having any shortness of breath with the pain. He reports that he last had his INR checked 2-3 weeks ago and it was 2.8. He reports that he is in the process of establishing with a new primary care physician in [place]. He has an appointment scheduled for . On review of systems otherwise, the patient denies having any known recent fevers, cough or congestion, neck pain, abdominal pain, vomiting, diarrhea, urinary symptoms, or neurologic symptoms. PFSH Past Medical History Narrative Medical The patient's past medical history is significant for history of lupus anticoagulant disorder, history of recurrent pulmonary embolisms, history of bilateral PEs, history of hyperthyroid disorder. Hx Anticoagulant Therapy: Yes (coumadin) Asthma: No Blood Disorders: Yes (hx 13 blood clots, lupus anticoagulant disorder) Heart Rhythm Problems: No Cancer: Yes (colon) Cardiovascular Problems: Yes (hx 4 spontaneous pneumothorax) High Cholesterol: No Chest Pain: Yes Congestive Heart Failure: No COPD: No Diabetes: No Diminished Hearing: No Endocrine: Yes (lupus) Gastrointestinal Disorders: No Genitourinary: No Hypertension: No Immune Disorder: No Implanted Vascular Access Dvce: No Musculoskeletal: Yes (lupus anticoagulant) Neurologic: No Psychiatric: No Reproductive: No Respiratory: Yes (hx of PE x 14 and Pneumothorax x 4) Immunizations Current: Yes Myocardial Infarction: Yes Sleep Apnea: No Thyroid Disease: Yes (hyperthyroidism) Past Surgical History Narrative Surgical The patient's past surgical history is significant for lung surgery bilaterally related to recurrent pneumothoraces, history of tonsillectomy Abdominal Surgery: Yes Thoracic Surgery: Yes (bilateral- partial removal of lung tissue) Tonsillectomy: Yes Other Surgery: Yes (lung surgeries, chest tube x4) Social History Alcohol Use: No Tobacco Use: Yes (3 cigarettes a day) Substance Use: No Allergies-Medications (Allergen,Severity, Reaction): Coded Allergies: No Known Allergies (Unverified Adverse Reaction, Unknown, 08/10/17) Reported Meds & Prescriptions Reported Meds & Active Scripts Active Warfarin 5 Mg Tab 5 Mg PO DAILY Methimazole 5 Mg Tab 5 Mg PO DAILY 5 Days Reported Dulcolax Stool Softener (Docusate Sodium) 100 Mg Cap 100 Mg PO BID Vitamin D3 (Cholecalciferol) 50,000 Unit Cap 50,000 Units PO Q7D Gabapentin 300 Mg Cap 300 Mg PO BID Review of Systems Except as stated in HPI: all other systems reviewed are Neg General / Constitutional: No: Fever Eyes: No: Visual changes HENT: No: Headaches, Neck Pain Cardiovascular: Positive: Chest Pain or Discomfort, No: Dyspnea on exertion Respiratory: No: Shortness of Breath Gastrointestinal: No: Nausea, Vomiting, Diarrhea, Abdominal Pain Genitourinary: No: Dysuria Musculoskeletal: No: Pain Skin: No Rash Neurologic: No: Weakness, Focal Abnormalities, Change in Mentation, Slurred Speech, Sensory Disturbance Psychiatric: No: Depression Endocrine: No: Polydipsia Hematologic/Lymphatic: No: Easy Bruising Physical Exam Narrative General: The patient is a well-developed well-nourished male in no acute distress. Head and Neck exam: Head is normocephalic atraumatic. Eyes: EOMI, pupils are equal round and reactive to light. Nose: Midline septum with pink mucous membranes Mouth: Dentition unremarkable. Moist mucus membranes. Posterior oropharynx is not erythematous. No tonsillar hypertrophy. Uvula midline. Airway patent. Neck: No palpable lymphadenopathy. No nuchal rigidity. No thyromegaly. Cardiovascular: Regular rate and rhythm without murmurs, gallops, or rubs. No pulse deficit to the extremities on simultaneous auscultation and palpation of his radial artery. Lungs: Clear to auscultation bilaterally. No wheezes, rhonchi, or rales. Abdomen: Soft, without tenderness to palpation in all 4 quadrants of the abdomen. No guarding, rebound, or rigidity. Normal bowel sounds are audible. No tenderness on palpation of McBurney's point. Negative Jacob sign. Extremities: No clubbing, cyanosis, or edema. 2+ pulses in all 4 extremities. No calf tenderness on palpation. Negative Homans sign. No palpable cords. Back: No spinous process tenderness to palpation. No costovertebral angle tenderness to palpation. Neurologic Exam: Grossly nonfocal. Skin Exam: No rash noted. Intact skin that is warm and dry. Data Data Last Documented VS Vital Signs Date Time Temp Pulse Resp B/P (MAP) Pulse Ox O2 Delivery O2 Flow Rate FiO2 08/10/17 19:54 100 Room Air 08/10/17 19:27 98.5 88 18 114/64 (81) Orders Orders Electrocardiogram (08/10/17 19:50) Complete Blood Count With Diff (08/10/17 19:50) Comprehensive Metabolic Panel (08/10/17 19:50) Creatine Kinase (Cpk) (08/10/17 19:50) Ckmb (Isoenzyme) Profile (08/10/17 19:50) Troponin I (08/10/17 19:50) Prothrombin Time / Inr (Pt) (08/10/17 19:50) Act Partial Throm Time (Ptt) (08/10/17 19:50) Lipase (08/10/17 19:50) Urinalysis - C+S If Indicated (08/10/17 19:50) Magnesium (Mg) (08/10/17 19:50) Thyroid Stimulating Hormone (08/10/17 19:50) Iv Access Insert/Monitor (08/10/17 19:50) Ecg Monitoring (08/10/17 19:50) Oximetry (08/10/17 19:50) Ct Pulmonary Angiogram (08/10/17 20:03) Acetamin-Hydrocod 325-5 Mg ([place] 5-325 (08/10/17 20:15) Sodium Chlor 0.9% 1000 Ml Inj (Ns 1000 M (08/10/17 20:15) CKMB (08/10/17 19:55) CKMB% (08/10/17 19:55) Iohexol 350 Inj (Omnipaque 350 Inj) (08/10/17 19:25) Consult Hematology (08/10/17 ) Free Thyroxine (T4) (08/11/17 06:00) Vital Signs (Adult) Q4H (08/10/17 22:11) Activity Oob Ad Tammy (08/10/17 22:11) Ice Rink Attendant / Telemetry .CONTINUOUS (08/10/17 22:11) Intake + Output LALIT.QSHIFT (08/10/17 22:11) Diet Regular Basic (08/11/17 Breakfast) Sodium Chloride 0.9% Flush (Ns Flush) (08/10/17 22:15) Sodium Chloride 0.9% Flush (Ns Flush) (08/11/17 09:00) Ondansetron Inj (Zofran Inj) (08/10/17 22:15) Comprehensive Metabolic Panel (08/11/17 06:00) Complete Blood Count With Diff (08/11/17 06:00) Troponin I (08/11/17 00:00) Troponin I (08/11/17 06:00) Case Management Consult (08/10/17 22:11) Acetaminophen (Tylenol) (08/10/17 22:15) Acetamin-Hydrocod 325-5 Mg ([place] 5-325 (08/10/17 22:15) Acetamin-Hydrocod 325-10 Mg ([place] 10-32 (08/10/17 22:15) Docusate Sodium-Senna (Rosalba-Colace) (08/11/17 09:00) Magnesium Hydroxide Liq (Milk Of Magnesi (08/10/17 22:15) Sennosides (Senokot) (08/10/17 22:15) Bisacodyl Supp (Dulcolax Supp) (08/10/17 22:15) Lactulose Liq (Lactulose Liq) (08/10/17 22:15) Inpatient Certification (08/10/17 ) Enoxaparin Inj (Lovenox Inj) (08/11/17 09:00) Gabapentin (Neurontin) (08/11/17 09:00) Methimazole (Tapazole) (08/11/17 09:00) Enoxaparin Inj (Lovenox Inj) (08/10/17 22:15) Budeson-Formot 160-4.5 Mcg Inh (Symbicor (08/11/17 09:00) Albuterol-Ipratropium Neb (Duoneb Neb) (08/10/17 22:15) Admit Order (Ed Use Only) (08/10/17 22:14) Admit To Inpatient (08/10/17 22:14) Prothrombin Time / Inr (Pt) (08/11/17 06:00) Labs Laboratory Tests Test 08/10/17 19:55 08/10/17 20:38 White Blood Count 10.0 TH/MM3 Red Blood Count 4.99 MIL/MM3 Hemoglobin 14.5 GM/DL Hematocrit 42.4 % Mean Corpuscular Volume 84.8 FL Mean Corpuscular Hemoglobin 28.9 PG Mean Corpuscular Hemoglobin Concent 34.1 % Red Cell Distribution Width 14.5 % Platelet Count 217 TH/MM3 Mean Platelet Volume 7.6 FL Neutrophils (%) (Auto) 73.3 % Lymphocytes (%) (Auto) 17.5 % Monocytes (%) (Auto) 7.0 % Eosinophils (%) (Auto) 1.3 % Basophils (%) (Auto) 0.9 % Neutrophils # (Auto) 7.3 TH/MM3 Lymphocytes # (Auto) 1.7 TH/MM3 Monocytes # (Auto) 0.7 TH/MM3 Eosinophils # (Auto) 0.1 TH/MM3 Basophils # (Auto) 0.1 TH/MM3 CBC Comment DIFF FINAL Differential Comment Prothrombin Time 25.1 SEC Prothromb Time International Ratio 2.5 RATIO Activated Partial Thromboplast Time 36.3 SEC Blood Urea Nitrogen 17 MG/DL Creatinine 1.00 MG/DL Random Glucose 83 MG/DL Total Protein 7.4 GM/DL Albumin 4.3 GM/DL Calcium Level 9.1 MG/DL Magnesium Level 2.0 MG/DL Alkaline Phosphatase 67 U/L Aspartate Amino Transf (AST/SGOT) 20 U/L Alanine Aminotransferase (ALT/SGPT) 35 U/L Total Bilirubin 0.4 MG/DL Sodium Level 141 MEQ/L Potassium Level 3.6 MEQ/L Chloride Level 106 MEQ/L Carbon Dioxide Level 28.1 MEQ/L Anion Gap 7 MEQ/L Estimat Glomerular Filtration Rate 88 ML/MIN Total Creatine Kinase 131 U/L Creatine Kinase MB LESS THAN 0.5 NG/ML Troponin I LESS THAN 0.02 NG/ML Lipase 134 U/L Thyroid Stimulating Hormone 3rd Gen 0.236 uIU/ML Urine Color YELLOW Urine Turbidity CLEAR Urine pH 6.0 Urine Specific [place] 1.023 Urine Protein NEG mg/dL Urine Glucose (UA) NEG mg/dL Urine Ketones NEG mg/dL Urine Occult Blood NEG Urine Nitrite NEG Urine Bilirubin NEG Urine Urobilinogen LESS THAN 2.0 MG/DL Urine Leukocyte Esterase NEG Urine RBC 1 /hpf Urine WBC LESS THAN 1 /hpf Urine Amorphous Sediment RARE Microscopic Urinalysis Comment CULT NOT INDICATED MDM Medical Decision Making Medical Screen Exam Complete: Yes Emergency Medical Condition: Yes Medical Record Reviewed: Yes Differential Diagnosis Pulmonary embolism, versus acute coronary syndrome, versus aortic dissection, versus recurrent pneumothorax, versus pleurisy, versus pneumonia, versus musculoskeletal strain Narrative Course during the course of the patient's emergency department visit, the patient's history, examination, and differential diagnosis were reviewed with the patient. The patient was placed on a bus driver/monitor with oximetry and frequent blood pressure monitoring. The patient had IV access obtained and blood work sent for analysis. The patient had a EKG done on arrival. The patient's EKG reveals a sinus rhythm with a heart rate of 73, QRS duration is 99 ms, QTC 394 ms. Borderline right axis deviation. No acute ST segment elevation. The patient was initially provided Lortab 5 mg p.o. 1 for pain. The patient's laboratory studies were reviewed and remarkable for 08/10/17 19:55 Total Protein 7.4, Albumin 4.3, Calcium Level 9.1, Magnesium Level 2.0, Alkaline Phosphatase 67, Aspartate Amino Transf (AST/SGOT) 20, Alanine Aminotransferase (ALT/SGPT) 35, Total Bilirubin 0.4, cardiac enzymes within normal limits. TSH is low at 0.236, lipase within normal limits, INR is therapeutic at 2.5, urinalysis within normal limits. Radiology studies were reviewed and remarkable for Last Impressions CT Angiography 08/10/172002 Signed Impressions: Service Date/Time: Thursday, August 10, 2017 20:52 - CONCLUSION: 1. Filling defects are identified within the left main pulmonary artery as well as the left upper and lower lobe branches and a right lower lobe branch consistent with pulmonary emboli. 2. Stable 7 mm noncalcified right upper lobe nodule which is indeterminate. Followup CT the chest in 6 months is recommended. 3. Stable scattered biapical fibrotic scarring and postsurgical changes bilaterally. Gilbert Mendoza MD Given the fact that the patient does have recurrent pulmonary embolisms and is therapeutic on Coumadin, the patient will be admitted to the hospital for continued evaluation and treatment. The patient is agreeable with this plan. The patient was given Lovenox subcutaneously. The patient's results were discussed with the patient, including the plan of care. I explained that further testing and/ or monitoring is indicated based on the patient's history, examination, and/ or laboratory findings. Therefore, I recommended admission for additional evaluation. The patient expressed understanding and was agreeable with this plan. The patient was admitted to the hospital in stable condition and sent to a bed under the care of the [facility] service. Physician Communication Physician Communication The patient's case including history, pertinent physical examination findings, and laboratory studies were discussed with Dr. Leslie. It was agreed that the patient would be admitted to the [facility] service. Diagnosis Primary Impression: Pulmonary embolism Qualified Codes: I26.99 - Other pulmonary embolism without acute cor pulmonale Admitting Information Admitting Physician Requests: Admit Jennifer Ryan MD August 10, 2017 20:12
[2017-08-10 20:15] LABS: AUTOMATED NEUTROPHIL # 7.3 TH/MM3 (1.8-7.7); BASOPHIL # 0.1 TH/MM3 (0-0.2); BASOPHIL % 0.9 % (0.0-2.0); EOSINOPHIL # 0.1 TH/MM3 (0-0.4); EOSINOPHIL % 1.3 % (0.0-4.0); HEMATOCRIT 42.4 % (39.0-51.0); HEMOGLOBIN 14.5 GM/DL (13.0-17.0); LYMPH % 17.5 % (9.0-44.0); LYMPHOCYTE # 1.7 TH/MM3 (1.0-4.8); MEAN CELL VOLUME 84.8 FL (80.0-100.0); MEAN CORPUSCULAR HEMOGLOBIN 28.9 PG (27.0-34.0); MEAN CORPUSCULAR HGB CONC 34.1 % (32.0-36.0); MEAN PLATELET VOLUME 7.6 FL (7.0-11.0); MONOCYTE # 0.7 TH/MM3 (0-0.9); NEUT % 73.3 % (16.0-70.0); PLATELET COUNT 217 TH/MM3 (150-450); RED BLOOD COUNT 4.99 MIL/MM3 (4.50-5.90); RED CELL DISTRIBUTION WIDTH 14.5 % (11.6-17.2)
[2017-08-10] MEDS ORDERED: ACETAMINOPHEN/HYDROcodone 325 MG/5 MG TAB PO ONE (20:15)
[2017-08-10] MEDS: SODIUM CHLOR 0.9% 1000 ML INJ 1,000 ML IV SCH (20:29)
[2017-08-10 20:31] LABS: INTERNATIONAL NORMALIZED RATIO 2.5 RATIO; PROTHROMBIN TIME - PATIENT 25.1 SEC (9.8-11.6)
[2017-08-10 20:34] LABS: ALT (GPT) 35 U/L (12-78)
[2017-08-10 20:41] LABS: ALBUMIN 4.3 GM/DL (3.4-5.0); AST (GOT) 20 U/L (15-37); BICARBONATE 28.1 MEQ/L (21.0-32.0); BLOOD UREA NITROGEN 17 MG/DL (7-18); CALCIUM 9.1 MG/DL (8.5-10.1); CHLORIDE 106 MEQ/L (98-107); GLOMERULAR FILTRATION RATE 88 ML/MIN (>89); GLUCOSE,RANDOM 83 MG/DL (74-106); SODIUM (NA) 141 MEQ/L (136-145)
[2017-08-10 20:44] LABS: ALKALINE PHOSPHATASE 67 U/L (45-117); TOTAL BILIRUBIN ADULT 0.4 MG/DL (0.2-1.0); TOTAL PROTEIN 7.4 GM/DL (6.4-8.2); TROPONIN I LESS THAN 0.02 NG/ML (0.02-0.05)
[2017-08-10 20:55] LABS: AMORPHOUS SEDIMENT, URINE RARE; BILIRUBIN, URINE NEG (NEG); BLOOD, URINE NEG (NEG); GLUCOSE,URINE NEG (NEG); KETONE, URINE NEG (NEG); NITRITE,URINE NEG (NEG); URINE COLOR YELLOW (YELLW/STRAW); URINE LEUKOCYTE ESTERASE NEG (NEG)
--- NOTE | 2017-08-10 21:27 | RADRPT ---
EXAM DATE/TIME: 08/10/2017 20:52 [facility] COMPARISON: CT PULMONARY ANGIOGRAM, December 20, 2016, 22:33. INDICATIONS : Chest and back pain. IV CONTRAST: 75 cc Omnipaque 350 (iohexol) IV RADIATION DOSE: 4.99 CTDIvol (mGy) MEDICAL HISTORY : Cardiovascular disease. Lupus. Carcinoma, colon.P.E. pneumothoraxes SURGICAL HISTORY : Pneumonectomy. ENCOUNTER: Initial ACUITY: 2 days PAIN SCALE: 7/10 LOCATION: Bilateral chest TECHNIQUE: Volumetric scanning of the chest was performed using a pulmonary embolism protocol MIP images were re constructed. Using automated exposure control and adjustment of the mA and/or kV according to patien t size, radiation dose was kept as low as reasonably achievable to obtain optimal diagnostic quality images. DICOM format image data is available electronically for review and comparison. Follow-up recommendations for detected pulmonary nodules are based at a minimum on nodule size and pa tient risk factors according to Fleischner Society Guidelines. FINDINGS: PULMONARY ARTERIES: Filling defects are identified within the left main pulmonary artery as well as the left upper and lo wer lobe branches and a right lower lobe branch consistent with pulmonary emboli. LUNGS: Bilateral apical parenchymal scarring is stable. Surgical changes involving the superior segments of the lower lobes are also stable. Focal surgical changes involving the posterior aspect of the left up per lobe is unchanged There is no consolidation or pneumothorax . There is a stable 7 mm noncalcified nodule within the right apex. Followup CT chest in 6 months is recommended. PLEURAE: There is no pleural thickening or pleural effusion. MEDIASTINUM: There is good visualization of the great vessels of the middle mediastinum. No evidence of mediastin al or hilar adenopathy/mass. MUSCULOSKELETAL: Within normal limits for patient age. MISCELLANEOUS: The visualized upper abdominal organs demonstrate no acute abnormality. CONCLUSION: 1. Filling defects are identified within the left main pulmonary artery as well as the left upper and lower lobe branches and a right lower lobe branch consistent with pulmonary emboli. 2. Stable 7 mm noncalcified right upper lobe nodule which is indeterminate. Followup CT the chest in 6 months is recommended. 3. Stable scattered biapical fibrotic scarring and postsurgical changes bilaterally. Gilbert Mendoza MD on August 10, 2017 at 21:18 Board Certified Radiologist. This report was verified electronically.
--- NOTE | 2017-08-10 22:14 | HHI.HP ---
HPI Service [facility] Primary Care Physician Non-Staff Admission Diagnosis Diagnoses: (1) PE (pulmonary thromboembolism) Diagnosis: Principal (2) Lupus anticoagulant disorder Diagnosis: Principal (3) Chest pain Diagnosis: Principal Travel History International Travel<30 Days: No Contact w/Intl Traveler <30 Da: No Traveled to Known Affected Are: No History of Present Illness This is a 27-year-old male with a PMH of Lupus Anticoagulant, h/o PE x18 on Coumadin and h/o Spontaneous Pneumothorax who presented to the ER w/ complaints of chest pain and SOB which he attributes to likely recurrent PE. Pt recently moved from [place], states he had Spontaneous Pneumothorax x4 approx 4yrs ago, s/p VATS, shortly afterwards was diagnosed w/ first episode of PE, and has had recurrent PE every 3-6 months since then despite anticoagulation. Follows w/ [facility]ant in [place] who still prescribes his medication until he can establish care locally (has appt w/ PCP in [place] on Friday). Was on Eliquis, Xarelto and now Coumadin w/ recurrent PE, compliant w/ medications. Last INR 2.8 approx 2wks ago. On arrival, BP 114/64, HR 88, O2 sat 100% on RA, Afebrile. CBC unremarkable. Chemistry unremarkable. Troponin negative. INR 2.5. UA negative for UTI. CTA Pulm w/ filling defects in left main pulmonary artery, MEENAKSHI, LLL and branches of RLL consistent w/ PE, 7mm noncalcified RUL nodule w/ recommendation for repeat CT in 6mo. This would be 2nd recurrence of PE while on Coumadin. S/p Lovenox in ER Review of Systems Except as stated in HPI: all other systems reviewed are Neg ROS: 14 point review of systems otherwise negative. Past Family Social History Past Medical History PMH: Lupus Anticoagulant, h/o PE x18 on Coumadin and h/o Spontaneous Pneumothorax Past Surgical History PAST SURGICAL HISTORY: VATS, Tonsillectomy Allergies: Coded Allergies: No Known Allergies (Unverified Adverse Reaction, Unknown, 08/10/17) Family History PAST FAMILY HISTORY: Reviewed. No h/o DM or CAD Social History PAST SOCIAL HISTORY: Negative for alcohol or drugs. Smokes few cigarettes per day. Physical Exam Vital Signs Vital Signs Date Time Temp Pulse Resp B/P (MAP) Pulse Ox O2 Delivery O2 Flow Rate FiO2 08/10/17 19:54 100 Room Air 08/10/17 19:27 98.5 88 18 114/64 (81) 100 Physical Exam PE: GENERAL: Pleasant young male in no acute distress. HEENT: PERRLA, EOMI. No scleral icterus or conjunctival pallor. No lid lag or facial droop. CARDIOVASCULAR: Regular rate and rhythm. No obvious murmurs to auscultation. No chest tenderness to palpation. RESPIRATORY: No obvious rhonchi or wheezing. Clear to auscultation. Breath sounds equal bilaterally. GASTROINTESTINAL: Abdomen soft, non-tender, nondistended. BS normal. MUSCULOSKELETAL: Extremities without clubbing, cyanosis, or edema. No obvious deformities. NEUROLOGICAL: Awake, alert and oriented x4. No focal neurologic deficits. Moving both upper and lower extremities spontaneously. Laboratory Laboratory Tests Test 08/10/17 19:55 08/10/17 20:38 White Blood Count 10.0 Red Blood Count 4.99 Hemoglobin 14.5 Hematocrit 42.4 Mean Corpuscular Volume 84.8 Mean Corpuscular Hemoglobin 28.9 Mean Corpuscular Hemoglobin Concent 34.1 Red Cell Distribution Width 14.5 Platelet Count 217 Mean Platelet Volume 7.6 Neutrophils (%) (Auto) 73.3 Lymphocytes (%) (Auto) 17.5 Monocytes (%) (Auto) 7.0 Eosinophils (%) (Auto) 1.3 Basophils (%) (Auto) 0.9 Neutrophils # (Auto) 7.3 Lymphocytes # (Auto) 1.7 Monocytes # (Auto) 0.7 Eosinophils # (Auto) 0.1 Basophils # (Auto) 0.1 CBC Comment DIFF FINAL Differential Comment Prothrombin Time 25.1 Prothromb Time International Ratio 2.5 Activated Partial Thromboplast Time 36.3 Blood Urea Nitrogen 17 Creatinine 1.00 Random Glucose 83 Total Protein 7.4 Albumin 4.3 Calcium Level 9.1 Magnesium Level 2.0 Alkaline Phosphatase 67 Aspartate Amino Transf (AST/SGOT) 20 Alanine Aminotransferase (ALT/SGPT) 35 Total Bilirubin 0.4 Sodium Level 141 Potassium Level 3.6 Chloride Level 106 Carbon Dioxide Level 28.1 Anion Gap 7 Estimat Glomerular Filtration Rate 88 Total Creatine Kinase 131 Creatine Kinase MB LESS THAN 0.5 Troponin I LESS THAN 0.02 Lipase 134 Thyroid Stimulating Hormone 3rd Gen 0.236 Urine Color YELLOW Urine Turbidity CLEAR Urine pH 6.0 Urine Specific [place] 1.023 Urine Protein NEG Urine Glucose (UA) NEG Urine Ketones NEG Urine Occult Blood NEG Urine Nitrite NEG Urine Bilirubin NEG Urine Urobilinogen LESS THAN 2.0 Urine Leukocyte Esterase NEG Urine RBC 1 Urine WBC LESS THAN 1 Urine Amorphous Sediment RARE Microscopic Urinalysis Comment CULT NOT INDICATED Result Diagram: 08/10/17195408/10/171954 Caprini VTE Risk Assessment Caprini VTE Risk Assessment: Mod/High Risk (score >= 2) Caprini Risk Assessment Model Point Value = 1 Point Value = 2 Point Value = 3 Point Value = 5 Age 41-60 Minor surgery BMI > 25 kg/m2 Swollen legs Varicose veins or History of unexplained or recurrent spontaneous Oral contraceptives or hormone replacement Sepsis (< 1 month) Serious lung disease, including pneumonia (< 1 month) Abnormal pulmonary function Acute myocardial infarction Congestive heart failure (< 1 month) History of inflammatory bowel disease Medical patient at bed rest Age 61-74 Arthroscopic surgery Major open surgery (> 45 min) Laparoscopic surgery (> 45 min) Malignancy Confined to bed (> 72 hours) Immobilizing plaster cast Central venous access Age >= 75 History of VTE Family history of VTE Factor V Leiden Prothrombin [id number] Lupus anticoagulant Anticardiolipin antibodies Elevated serum homocysteine Heparin-induced thrombocytopenia Other congenital or acquired thrombophilia Stroke (< 1 month) Elective arthroplasty Hip, pelvis, or leg fracture Acute spinal cord injury (< 1 month) Prophylaxis Regimen Total Risk Factor Score Risk Level Prophylaxis Regimen 0-1 Low Early ambulation 2 Moderate Order ONE of the following: *Sequential Compression Device (SCD) *Heparin 5000 units SQ BID 3-4 Higher Order ONE of the following medications: *Heparin 5000 units SQ TID *Enoxaparin/Lovenox 40 mg SQ daily (WT < 150 kg, CrCl > 30 mL/min) *Enoxaparin/Lovenox 30 mg SQ daily (WT < 150 kg, CrCl > 10-29 mL/min) *Enoxaparin/Lovenox 30 mg SQ BID (WT < 150 kg, CrCl > 30 mL/min) AND/OR *Sequential Compression Device (SCD) 5 or more Highest Order ONE of the following medications: *Heparin 5000 units SQ TID (Preferred with Epidurals) *Enoxaparin/Lovenox 40 mg SQ daily (WT < 150 kg, CrCl > 30 mL/min) *Enoxaparin/Lovenox 30 mg SQ daily (WT < 150 kg, CrCl > 10-29 mL/min) *Enoxaparin/Lovenox 30 mg SQ BID (WT < 150 kg, CrCl > 30 mL/min) AND *Sequential Compression Device (SCD) Assessment and Plan Problem List: (1) PE (pulmonary thromboembolism) ICD Code: I26.99 - Other pulmonary embolism without acute cor pulmonale (2) Lupus anticoagulant disorder ICD Code: D68.62 - Lupus anticoagulant syndrome (3) Chest pain ICD Code: R07.9 - Chest pain, unspecified Assessment and Plan A/P: 1. PE: Recurrent. Multiple episodes of PE for approx 4yrs, every 3-6months, despite being on anticoagulation. Following w/ [facility] Consultant in [place] until he recently moved here, has upcoming 1st appt w/ PCP on Friday in [place], no Senior Sustainability Consultant locally as of yet. CTA Pulm w/ multiple areas of filling defect bilaterally consistent w/ PE, images reviewed by me. Currently on Coumadin, INR therapeutic at 2.5, compliant w/ meds. Will switch to Lovenox 60mg sq bid until eval by Hematology for further recommendations, ?Arixtra. DuoNeb prn, Symbicort bid for bronchospasm. 2. Lupus Anticoagulant: w/ recurrent PE as above, consult Hematology for further evaluation/recommendations regarding anticoagulation. 3. Chest Pain: likely secondary to multiple PE. Initial trop negative, will check serial cardiac enzymes for trend. Check Echo to eval for cardiac strain/ heart failure or valvular abnormalities. Percocet/Morphine prn. 4. DVT Prophylaxis: Lovenox 60mg bid 5. Social work for d/c planning as needed. 6. Case discussed w/ ER physician at length, labs/records/imaging reviewed by me Physician Certification 2 Midnight Certification Type: Admission for Inpatient Services Order for Inpatient Services The services are ordered in accordance with Medicare regulations or non- Medicare payer requirements, as applicable. In the case of services not specified as inpatient-only, they are appropriately provided as inpatient services in accordance with the 2-midnight benchmark. Estimated LOS (days): 2 days is the estimated time the patient will need to remain in the hospital, assuming treatment plan goals are met and no additional complications. Post-Hospital Plan: Not yet determined Nelia Leslie MD August 10, 2017 22:14
[2017-08-10] MEDS ORDERED: MAGNESIUM HYDROXIDE SUSP 30 ML CUP PO PRN (22:15)
[2017-08-10] MEDS ORDERED: RESP: ALBUTEROL 2.5 MG/IPRATROPIUM 0.5 MG NEB (PRN) NEB (22:15)
[2017-08-10] MEDS ORDERED: ONDANSETRON HCL 4 MG/2 ML VIAL IVP PRN (22:15)
[2017-08-10] MEDS ORDERED: ACETAMINOPHEN/HYDROcodone 325 MG/5 MG TAB PO PRN (22:15)
[2017-08-10] MEDS ORDERED: BISACODYL 10 MG SUPP RECTAL PRN (22:15)
[2017-08-10] MEDS ORDERED: ACETAMINOPHEN/HYDROcodone 325 MG/10 MG TAB PO PRN (22:15)
[2017-08-10] MEDS ORDERED: LACTULOSE SYRUP 20 GM/30 ML CUP PO PRN (22:15)
[2017-08-10] MEDS ORDERED: SENNOSIDES 8.6 MG TAB PO PRN (22:15)
[2017-08-10] MEDS ORDERED: SODIUM CHLORIDE 0.9% FLUSH 10 ML FLUSH IV FLUSH PRN (22:15)
[2017-08-10] MEDS ORDERED: ENOXAPARIN SODIUM 60 MG/0.6 ML SYRINGE SQ ONE (22:15)
[2017-08-10] MEDS ORDERED: ACETAMINOPHEN 325 MG TAB PO PRN (22:15)
[2017-08-11] VITALS (25 sets, daily range): BP systolic 91–119; BP diastolic 54–81; PULSE 50–81; RESP 16–20; TEMP 97.7–99.1; O2SAT 98–100
[2017-08-11] MEDS: MORPHINE SULFATE 4 MG/ML INJ IV PRN ×5 (01:24→20:03)
[2017-08-11] MEDS: SODIUM CHLOR 0.9% 1000 ML INJ 1,000 ML IV SCH ×2 (06:15→14:35)
[2017-08-11 06:17] LABS: AUTOMATED NEUTROPHIL # 4.2 TH/MM3 (1.8-7.7); BASOPHIL # 0.1 TH/MM3 (0-0.2); BASOPHIL % 1.2 % (0.0-2.0); EOSINOPHIL # 0.2 TH/MM3 (0-0.4); EOSINOPHIL % 2.4 % (0.0-4.0); HEMATOCRIT 40.3 % (39.0-51.0); HEMOGLOBIN 13.6 GM/DL (13.0-17.0); LYMPH % 29.9 % (9.0-44.0); LYMPHOCYTE # 2.2 TH/MM3 (1.0-4.8); MEAN CORPUSCULAR HEMOGLOBIN 28.5 PG (27.0-34.0); MEAN CORPUSCULAR HGB CONC 33.9 % (32.0-36.0); MEAN PLATELET VOLUME 7.6 FL (7.0-11.0); MONO % 8.4 % (0.0-8.0); MONOCYTE # 0.6 TH/MM3 (0-0.9); NEUT % 58.1 % (16.0-70.0); PLATELET COUNT 196 TH/MM3 (150-450); RED BLOOD COUNT 4.79 MIL/MM3 (4.50-5.90); RED CELL DISTRIBUTION WIDTH 14.5 % (11.6-17.2); WHITE BLOOD COUNT 7.2 TH/MM3 (4.0-11.0)
[2017-08-11 06:29] LABS: INTERNATIONAL NORMALIZED RATIO 2.6 RATIO; PROTHROMBIN TIME - PATIENT 26.6 SEC (9.8-11.6)
[2017-08-11 07:58] LABS: ALBUMIN 3.8 GM/DL (3.4-5.0); ALT (GPT) 31 U/L (12-78); AST (GOT) 16 U/L (15-37); BICARBONATE 27.9 MEQ/L (21.0-32.0); BLOOD UREA NITROGEN 14 MG/DL (7-18); CALCIUM 8.3 MG/DL (8.5-10.1); CHLORIDE 109 MEQ/L (98-107); CREATININE 0.86 MG/DL (0.60-1.30); GLOMERULAR FILTRATION RATE 105 ML/MIN (>89); GLUCOSE,RANDOM 84 MG/DL (74-106); SODIUM (NA) 142 MEQ/L (136-145)
[2017-08-11 08:11] LABS: ALKALINE PHOSPHATASE 55 U/L (45-117); FREE T4 0.94 NG/DL (0.76-1.46); TOTAL BILIRUBIN ADULT 0.5 MG/DL (0.2-1.0); TOTAL PROTEIN 6.5 GM/DL (6.4-8.2); TROPONIN I LESS THAN 0.02 NG/ML (0.02-0.05)
[2017-08-11] MEDS: METHIMAZOLE 5 MG TAB PO SCH (09:45)
[2017-08-11] MEDS: ENOXAPARIN SODIUM 60 MG/0.6 ML SYRINGE SQ SCH ×2 (09:45→20:04)
[2017-08-11] MEDS: GABAPENTIN 300 MG CAP PO SCH ×2 (09:45→20:03)
[2017-08-11] MEDS: SODIUM CHLORIDE 0.9% FLUSH 10 ML FLUSH IV FLUSH SCH ×2 (09:46→20:04)
[2017-08-11] MEDS: DOCUSATE SODIUM 50 MG/SENNA 8.6 MG TAB PO SCH ×2 (09:46→20:03)
[2017-08-11] MEDS: BUDESONIDE-FORMOTEROL 160/4.5 MCG INHALER INH SCH ×4 (10:00→20:05)
--- NOTE | 2017-08-11 10:41 | EKG ---
Date Performed: 08/10/2017 Time Performed: 19:42:04 PTAGE: 27 years EKG: Sinus rhythm BORDERLINE RIGHT AXIS DEVIATION BORDERLINE ECG Since the PREVIOUS TRACING , no significant change noted PREVIOUS TRACIN12/20/2016 21.54 DOCTOR: Miguel Jeffrey Interpretating Date/Time 08/11/2017 10:40:13
--- NOTE | 2017-08-11 14:11 | HHI.PR ---
Subjective Remarks Follow-up for recurrent pulmonary embolism in a patient with a history of lupus anticoagulant. Patient is currently doing well. On room air. Denies any chest pain except when he laughs or coughs, shortness of breath, fever or chills. Ambulating well. Objective Vitals Vital Signs Date Time Temp Pulse Resp B/P (MAP) Pulse Ox O2 Delivery O2 Flow Rate FiO2 08/11/17 12:00 62 08/11/17 11:20 97.7 61 16 108/59 (75) 100 08/11/17 11:02 62 08/11/17 10:00 60 08/11/17 09:00 58 08/11/17 08:15 58 08/11/17 08:14 97.8 50 16 112/63 (79) 100 08/11/17 07:50 97.8 63 17 119/72 (88) 100 Nasal Cannula 2.00 08/11/17 07:40 17 08/11/17 07:00 63 20 100 Room Air 08/11/17 07:00 18 100 Nasal Cannula 2.00 08/11/17 07:00 97.9 63 20 102/81 (88) 100 Nasal Cannula 2.00 08/11/17 06:38 81 18 91/62 (72) 99 Nasal Cannula 2.00 08/11/17 05:49 59 16 94/54 (67) 98 Room Air 08/11/17 00:29 72 16 108/69 (82) 98 Room Air 08/10/17 19:54 100 Room Air 08/10/17 19:27 98.5 88 18 114/64 (81) 100 Result Diagram: 08/11/17 0545 08/11/17 [address] Angiography 08/10/172002 Signed Impressions: Service Date/Time: Thursday, August 10, 2017 20:52 - CONCLUSION: 1. Filling defects are identified within the left main pulmonary artery as well as the left upper and lower lobe branches and a right lower lobe branch consistent with pulmonary emboli. 2. Stable 7 mm noncalcified right upper lobe nodule which is indeterminate. Followup CT the chest in 6 months is recommended. 3. Stable scattered biapical fibrotic scarring and postsurgical changes bilaterally. Gilbert Mendoza MD Objective Remarks GENERAL: Alert, oriented 3, NAD SKIN: Warm and dry. HEAD: Normocephalic. EYES: No scleral icterus. No injection or drainage. NECK: Supple, trachea midline. No JVD or lymphadenopathy. CARDIOVASCULAR: Regular rate and rhythm without murmurs, gallops, or rubs. RESPIRATORY: Breath sounds equal bilaterally. No accessory muscle use. GASTROINTESTINAL: Abdomen soft, non-tender, nondistended. MUSCULOSKELETAL: No cyanosis, or edema. BACK: Nontender without obvious deformity. No CVA tenderness. Procedures None A/P Problem List: (1) PE (pulmonary thromboembolism) ICD Code: I26.99 - Other pulmonary embolism without acute cor pulmonale (2) Lupus anticoagulant disorder ICD Code: D68.62 - Lupus anticoagulant syndrome (3) Chest pain ICD Code: R07.9 - Chest pain, unspecified Assessment and Plan This is a 27-year-old male with a PMH of Lupus Anticoagulant, h/o PE x18 on Coumadin and h/o Spontaneous Pneumothorax who presented to the ER w/ complaints of chest pain and SOB which he attributes to likely recurrent PE. Pt recently moved from [place], states he had Spontaneous Pneumothorax x4 approx 4yrs ago, s/p VATS, shortly afterwards was diagnosed w/ first episode of PE, and has had recurrent PE every 3-6 months since then despite anticoagulation. CTA Pulm w/ filling defects in left main pulmonary artery, MEENAKSHI, LLL and branches of RLL consistent w/ PE, 7mm noncalcified RUL nodule w/ recommendation for repeat CT in 6mo. This would be 2nd recurrence of PE while on Coumadin. S/p Lovenox in ER. Recurrent pulmonary embolism Hx of lupus anticoagulants -Hematology service consulted. -Currently patient is on Lovenox 60mg BID. -Long-term treatment with Lovenox would be difficult due to injectable medications as well as cost. -If we do consider warfarin, consider adding low-dose aspirin as well. Hypothyroidism -continue methimazole 5 mg daily. Full code. Lovenox. Taylor Nesbitt DO August 11, 2017 2:11 pm
[2017-08-11] MEDS: oxyCODONE/ACETAMINOPHEN 10 MG/325 MG TAB PO PRN (22:13)
[2017-08-12] VITALS (18 sets, daily range): BP systolic 88–110; BP diastolic 52–62; PULSE 52–80; RESP 16–18; TEMP 97.5–98.1; O2SAT 99–100
[2017-08-12] MEDS: MORPHINE SULFATE 4 MG/ML INJ IV PRN ×4 (00:11→20:54)
[2017-08-12] MEDS: SODIUM CHLOR 0.9% 1000 ML INJ 1,000 ML IV SCH ×3 (00:12→20:46)
[2017-08-12] MEDS: oxyCODONE/ACETAMINOPHEN 10 MG/325 MG TAB PO PRN ×4 (02:46→23:10)
--- NOTE | 2017-08-12 07:38 | MB ---
cc: Babita Rowley MD DATE: 08/12/2017 CHIEF COMPLAINT: Recurrent pulmonary embolism. HISTORY OF PRESENT ILLNESS: Mr. Lisa is a 27-year-old man with a history of lupus anticoagulant, pulmonary embolism, currently on chronic warfarin therapy, history of spontaneous pneumothorax, who presented to the emergency room on 08/10/2017 with complaints of chest pain and shortness of breath. The patient reports that over the past several months, he has moved from [place] to the [facility]. He reports a complicated past medical history. He states that he has a history of spontaneous pneumothorax bilaterally. He reports that he has had surgery to correct the pneumothorax that was present on both his right and his left lung. Shortly after these procedures, he was diagnosed with a pulmonary embolism. He reports that he was initially placed on warfarin and due to being new to this medication, he had some degree of noncompliance and had a repeat clot while his INR was subtherapeutic. He was then transitioned to Xarelto and he was on the with twice-daily dosing of Xarelto for 3 weeks and at that time he was compliant with his medicines, taking them as scheduled with food and he developed a recurrent clot. He was then transitioned back to warfarin with a stable INR, he reports, in the therapeutic range between 2-3. He denies any recent travel and illness. He is currently on Lovenox injections. CT angiography in the emergency room with filling defects identified within the left main pulmonary artery as well as the left upper and left lower branches and a right lower lobe branch consistent with pulmonary emboli. Stable 7 mm noncalcified right upper lobe nodule, which is indeterminate. I recommended followup CT scan of the chest. Laboratory studies with white blood cell count of 7.2; hemoglobin 13.6; platelet count is 196,000. He has a normal differential. Chemistry studies with a creatinine of 0.86, normal liver function tests. PAST MEDICAL HISTORY: 1. History of lupus anticoagulant. 2. History of pulmonary embolism. 3. History of spontaneous pneumothorax. PAST SURGICAL HISTORY: 1. VATS. 2. Tonsillectomy. ALLERGIES: NO KNOWN DRUG ALLERGIES. FAMILY HISTORY: Family history of pulmonary embolism. SOCIAL HISTORY: No alcohol or drugs. The patient is an active tobacco abuser. He reports that he is working on cutting down and now is smoking about 4 cigarettes per day. PHYSICAL EXAMINATION: GENERAL: Well-developed, well-nourished, thin man, in no distress. HEENT: Head is normocephalic, atraumatic. ENT: Oropharynx clear. Eyes: PERRLA, EOMI. CARDIOVASCULAR: Regular rate and rhythm, no murmurs. RESPIRATORY: Clear to auscultation bilaterally. ABDOMEN: Soft, nontender, and nondistended. Bowel sounds present. EXTREMITIES: With no edema. NEUROLOGIC: Grossly nonfocal. PSYCHIATRIC: Appropriate mood and affect. ASSESSMENT AND PLAN: 1. Recurrent pulmonary embolism despite anticoagulation including on warfarin and Xarelto. The patient reports that he has had a thorough workup by his porter head in [place] and has been diagnosed with lupus anticoagulant. For anticoagulation, would recommend Lovenox injection at 1 mg/kg twice daily in the outpatient setting. 2. History of lupus anticoagulant, possible diagnosis of antiphospholipid antibody syndrome. We will need to have records from above porter head. The patient reports that prior to his move down here, he had multiple tubes of blood drawn to undergo a thorough workup for rheumatologic disease, as well as a hypercoagulable workup. Inpatient hematology service will continue to follow. MD SHEN Evans/HARSH , 07:11 AM , 07:37 AM
[2017-08-12] MEDS: DOCUSATE SODIUM 50 MG/SENNA 8.6 MG TAB PO SCH ×2 (08:52→20:46)
[2017-08-12] MEDS: SODIUM CHLORIDE 0.9% FLUSH 10 ML FLUSH IV FLUSH SCH ×2 (08:53→20:46)
[2017-08-12] MEDS: GABAPENTIN 300 MG CAP PO SCH ×2 (08:53→20:45)
[2017-08-12] MEDS: METHIMAZOLE 5 MG TAB PO SCH (08:53)
[2017-08-12] MEDS: BUDESONIDE-FORMOTEROL 160/4.5 MCG INHALER INH SCH ×2 (08:53→20:48)
[2017-08-12] MEDS: ENOXAPARIN SODIUM 60 MG/0.6 ML SYRINGE SQ SCH ×2 (08:53→20:45)
--- NOTE | 2017-08-12 10:45 | HHI.PR ---
Subjective Remarks Follow-up recurrent pulmonary embolism. The patient is still having chest pain bilaterally. He states that the pain with this particular clot is worse than his previous episodes. Denies shortness of breath. Has been able to ambulate in the room without worsening of his symptoms. Objective Vitals Vital Signs Date Time Temp Pulse Resp B/P (MAP) Pulse Ox O2 Delivery O2 Flow Rate FiO2 08/12/17 10:00 64 08/12/17 09:00 68 08/12/17 08:00 80 08/12/17 07:33 100 Room Air 08/12/17 07:33 97.5 62 16 96/52 (67) 100 08/12/17 07:00 52 08/12/17 06:20 55 08/12/17 05:05 52 08/12/17 04:15 65 08/12/17 03:35 54 08/12/17 03:34 97.5 71 16 88/56 (67) 100 08/12/17 02:01 67 08/12/17 01:06 60 08/12/17 00:00 67 08/11/17 23:15 99.1 65 16 105/66 (79) 100 08/11/17 23:00 71 08/11/17 22:00 62 08/11/17 21:00 68 08/11/17 20:00 98.1 65 16 104/60 (75) 100 08/11/17 20:00 70 08/11/17 20:00 100 Room Air 08/11/17 19:00 65 08/11/17 18:00 66 08/11/17 17:00 74 08/11/17 16:00 60 08/11/17 15:14 98.0 61 16 99/58 (72) 100 08/11/17 15:03 57 08/11/17 14:00 68 08/11/17 13:00 78 08/11/17 12:00 62 08/11/17 11:20 97.7 61 16 108/59 (75) 100 08/11/17 11:02 62 I/O 08/11/17 08/11/17 08/11/17 08/12/17 08/12/17 08/12/17 07:00 15:00 23:00 07:00 15:00 23:00 Intake Total 1000 ml 1243 ml 480 ml 1000 ml Balance 1000 ml 1243 ml 480 ml 1000 ml Intake Oral 1243 ml 480 ml IV Total 1000 ml 1000 ml # Voids 7 2 # Bowel Movements 1 Result Diagram: 08/11/17 0545 08/11/17 [address] Angiography 08/10/172002 Signed Impressions: Service Date/Time: Thursday, August 10, 2017 20:52 - CONCLUSION: 1. Filling defects are identified within the left main pulmonary artery as well as the left upper and lower lobe branches and a right lower lobe branch consistent with pulmonary emboli. 2. Stable 7 mm noncalcified right upper lobe nodule which is indeterminate. Followup CT the chest in 6 months is recommended. 3. Stable scattered biapical fibrotic scarring and postsurgical changes bilaterally. Gilbert Mendoza MD Objective Remarks General: No acute distress. Heart: Regular rate and rhythm. No murmur. Lungs: Clear to auscultation bilaterally. No wheezes, rales, or rhonchi. Breathing is nonlabored. Abdomen: Soft, nontender, nondistended. Extremities: No lower extremity edema. Psych: Alert and oriented. Neuro: Normal speech. No focal deficits noted. Procedures None Urinary Catheter: No Vascular Central Line Catheter: No A/P Problem List: (1) PE (pulmonary thromboembolism) ICD Code: I26.99 - Other pulmonary embolism without acute cor pulmonale (2) Lupus anticoagulant disorder ICD Code: D68.62 - Lupus anticoagulant syndrome (3) Chest pain ICD Code: R07.9 - Chest pain, unspecified Assessment and Plan 1. Recurrent pulmonary embolism: Patient has history of lupus anticoagulant. Appreciate hematology recommendations. Continue Lovenox 60 mg twice daily. 2. Hyperthyroidism: Continue methimazole. 3. CODE STATUS: Full code. Discharge Planning Plan for discharge home when cleared by hematology. Lazaro Diggs MD August 12, 2017 10:45
[2017-08-12] MEDS ORDERED: OXYC1TAB36 PO (13:54)
[2017-08-12] MEDS ORDERED: ENOX60P SQ (13:54)
--- NOTE | 2017-08-12 13:55 | HHI.DCPOC ---
Discharge Care Plan Diagnosis: (1) Pulmonary embolism (2) PE (pulmonary thromboembolism) (3) Chest pain (4) Lupus anticoagulant disorder Goals to Promote Your Health * To prevent worsening of your condition and complications * To maintain your health at the optimal level Directions to Meet Your Goals Take your medications as prescribed Follow your dietary instruction Follow activity as directed Keep your appointments as scheduled Take your immunizations and boosters as scheduled If your symptoms worsen call your PCP, if no PCP go to Urgent Care Center or Emergency Room Smoking is Dangerous to Your Health. Avoid second hand smoke Call the 24-hour hour crisis hotline for domestic abuse at Lazaro Diggs MD August 12, 2017 13:55
[2017-08-13] VITALS: BP 99/54; PULSE 69; RESP 18; TEMP 98; O2SAT 94
[2017-08-13 04:00] VITALS: BP 98/57; PULSE 76; RESP 16; TEMP 97.5; O2SAT 99
[2017-08-13] MEDS: MORPHINE SULFATE 4 MG/ML INJ IV PRN (05:03)
[2017-08-13] MEDS: SODIUM CHLOR 0.9% 1000 ML INJ 1,000 ML IV SCH (05:03)
[2017-08-13 08:00] VITALS: BP 104/56; PULSE 59; RESP 20; TEMP 97.4; O2SAT 99
[2017-08-13] MEDS: BUDESONIDE-FORMOTEROL 160/4.5 MCG INHALER INH SCH (08:39)
[2017-08-13] MEDS: ENOXAPARIN SODIUM 60 MG/0.6 ML SYRINGE SQ SCH (08:40)
[2017-08-13] MEDS: GABAPENTIN 300 MG CAP PO SCH (08:40)
[2017-08-13] MEDS: METHIMAZOLE 5 MG TAB PO SCH (08:40)
[2017-08-13] MEDS: DOCUSATE SODIUM 50 MG/SENNA 8.6 MG TAB PO SCH (08:40)
[2017-08-13] MEDS: SODIUM CHLORIDE 0.9% FLUSH 10 ML FLUSH IV FLUSH SCH (08:40)
[2017-08-13] MEDS: oxyCODONE/ACETAMINOPHEN 10 MG/325 MG TAB PO PRN ×2 (09:03→13:26)
--- NOTE | 2017-08-13 11:18 | HHI.PR ---
Subjective Remarks pain improved ambulating around- sats good Objective Vitals Vital Signs Date Time Temp Pulse Resp B/P (MAP) Pulse Ox O2 Delivery O2 Flow Rate FiO2 08/13/17 08:00 97.4 59 20 104/56 (72) 99 08/13/17 04:00 97.5 76 16 98/57 (71) 99 08/13/17 00:00 98.0 69 18 99/54 (69) 94 08/12/17 20:45 Room Air 08/12/17 20:00 97.8 67 18 105/55 (72) 100 08/12/17 16:00 97.9 66 16 110/56 (74) 99 08/12/17 12:29 98.1 65 18 106/60 (75) 100 I/O 08/12/17 08/12/17 08/12/17 08/13/17 08/13/17 08/13/17 07:00 15:00 23:00 07:00 15:00 23:00 Intake Total 480 ml 1591 ml 1620 ml 1360 ml Balance 480 ml 1591 ml 1620 ml 1360 ml Intake Oral 480 ml 591 ml 620 ml 360 ml IV Total 1000 ml 1000 ml 1000 ml # Voids 2 1 2 6 # Bowel Movements 0 1 Result Diagram: 08/11/17 0545 08/11/17 [address] Angiography 08/10/172002 Signed Impressions: Service Date/Time: Thursday, August 10, 2017 20:52 - CONCLUSION: 1. Filling defects are identified within the left main pulmonary artery as well as the left upper and lower lobe branches and a right lower lobe branch consistent with pulmonary emboli. 2. Stable 7 mm noncalcified right upper lobe nodule which is indeterminate. Followup CT the chest in 6 months is recommended. 3. Stable scattered biapical fibrotic scarring and postsurgical changes bilaterally. Gilbert Mendoza MD Objective Remarks awake and alert, no acute distress lungs- no rales regular rhythm HR- 88 abdomen soft extremites no edema, no calf swelling Procedures None A/P Problem List: (1) PE (pulmonary thromboembolism) ICD Code: I26.99 - Other pulmonary embolism without acute cor pulmonale (2) Lupus anticoagulant disorder ICD Code: D68.62 - Lupus anticoagulant syndrome (3) Chest pain ICD Code: R07.9 - Chest pain, unspecified Assessment and Plan 27 years old REcurrent PE- with hypercoaguable state Lovenox 60 mg SQ q 12 OP ff up with Oncology OP ff up set p with a PCP[facility] prn pain meds Hyperthyroidism: Continue methimazole. Dc today d/w staff nurse and CM- assist with meds Anuja Recinos MD August 13, 2017 11:18
[2017-08-13 12:00] VITALS: BP 102/61; PULSE 79; RESP 19; TEMP 98.1; O2SAT 99
--- NOTE | 2017-08-14 01:16 | PD.ONC.PN ---
Subjective Subjective Remarks Late note entry. Patient seen at bedside on 08/13/2017 prior to hospital discharge. He reprots that he is doing well. Chest pain is improving. Objective Data Date Time Temp Pulse Resp B/P (MAP) Pulse Ox O2 Delivery O2 Flow Rate FiO2 08/13/17 12:00 98.1 79 19 102/61 (75) 99 08/13/17 08:00 97.4 59 20 104/56 (72) 99 08/13/17 04:00 97.5 76 16 98/57 (71) 99 Result Diagram: 08/11/17 0545 08/11/17 0716 Objective Remarks GENERAL: Well-nourished, well-developed patient. SKIN: Warm and dry. HEAD: Normocephalic. EYES: No scleral icterus. No injection or drainage. NECK: Supple, trachea midline. No JVD or lymphadenopathy. LYMPHATIC: No adenopathy. CARDIOVASCULAR: Regular rate and rhythm without murmurs. RESPIRATORY: Breath sounds equal bilaterally. No accessory muscle use. GASTROINTESTINAL: Abdomen soft, non-tender, nondistended. EXTREMITIES: No cyanosis, or edema. MUSCULOSKELETAL: Adequate muscle tone. NEUROLOGICAL: No obvious focal deficit. Awake, alert, and oriented x3. PSYCHIATRIC: Appropriate mood and affect; insight and judgment normal. Assessment/Plan Assessment 1. Pulmonary embolism: history of LA/antiphospholipid antibody syndrome. PE on warfarin therapy. WIll treat patient with lovenox 60 mg subq BID. Will arrange for close follow up in clinic and records from prior physicians up [place]. Babita Rowley MD August 14, 2017 01:16
== END 2017-08-13 16:19 | disposition home or self-care (01) | DRG 176 ==
LOC: NEPC 19:24 → NEDA 22:16 → NEDH 08-11 02:53 → HCPC 08-11 08:09 → N07A 08-12 12:15 → UNDODISIN 08-12 17:30
PROVIDERS: ADMIT Internal Medicine; ATTEND Internal Medicine
DX: I26.99 Other pulmonary embolism without acute cor pulmonale (principal); D68.62 Lupus anticoagulant syndrome; E05.90 Thyrotoxicosis, unspecified without thyrotoxic crisis or storm; F17.210 Nicotine dependence, cigarettes, uncomplicated; R91.1 Solitary pulmonary nodule; Z79.01 Long term (current) use of anticoagulants; Z86.711 Personal history of pulmonary embolism; I25.2 Old myocardial infarction; Z82.49 Family history of ischemic heart disease and other diseases of the circulatory system
CPT/HCPCS: 71275; 80053; 81001; 82550; 82552; 83690; 83735; 84439; 84443; 84484; 85025; 85610; 85730; 93005; 94150; 96360; 96361; J1650; J2270; J7030; Q9967

== ENCOUNTER 2017-08-28 12:16 | Emergency (ER) | payer SELFPAY ==
[~2017-08-28] VITALS: Ht 188 cm; Wt 65.0 kg
[~2017-08-28 12:16] MED LIST changes: +ENOX60P SQ; -MAGICADU2 SWISH-SWAL; -OXYC-395 PO; +OXYC1TAB36 PO; -PENI500T PO; -WARF-23 PO
[2017-08-28] MEDS ORDERED: IOHEXOL 350 MG/ML 10 ML VIAL (for RAD DIAG) IVCONTRAST ONE (12:17)
[2017-08-28 12:21] VITALS: BP 120/64; PULSE 81; RESP 22; TEMP 98.7; O2SAT 99
[2017-08-28 13:20] LABS: AUTOMATED NEUTROPHIL # 3.5 TH/MM3 (1.8-7.7); BASOPHIL # 0.1 TH/MM3 (0-0.2); BASOPHIL % 1.1 % (0.0-2.0); EOSINOPHIL # 0.1 TH/MM3 (0-0.4); EOSINOPHIL % 1.5 % (0.0-4.0); HEMATOCRIT 40.2 % (39.0-51.0); HEMOGLOBIN 13.3 GM/DL (13.0-17.0); LYMPH % 20.6 % (9.0-44.0); LYMPHOCYTE # 1.1 TH/MM3 (1.0-4.8); MEAN CELL VOLUME 85.3 FL (80.0-100.0); MEAN CORPUSCULAR HEMOGLOBIN 28.2 PG (27.0-34.0); MEAN CORPUSCULAR HGB CONC 33.1 % (32.0-36.0); MEAN PLATELET VOLUME 7.7 FL (7.0-11.0); MONO % 8.3 % (0.0-8.0); MONOCYTE # 0.4 TH/MM3 (0-0.9); NEUT % 68.5 % (16.0-70.0); PLATELET COUNT 190 TH/MM3 (150-450); RED BLOOD COUNT 4.71 MIL/MM3 (4.50-5.90); RED CELL DISTRIBUTION WIDTH 14.2 % (11.6-17.2); WHITE BLOOD COUNT 5.1 TH/MM3 (4.0-11.0)
[2017-08-28 13:33] LABS: D-DIMER LESS THAN 0.19 MG/L FEU (0.00-0.50); INTERNATIONAL NORMALIZED RATIO 1.1 RATIO; PROTHROMBIN TIME - PATIENT 11.4 SEC (9.8-11.6)
[2017-08-28 13:42] LABS: BICARBONATE 27.5 MEQ/L (21.0-32.0); BLOOD UREA NITROGEN 21 MG/DL (7-18); CALCIUM 8.7 MG/DL (8.5-10.1); CHLORIDE 105 MEQ/L (98-107); CREATININE 1.07 MG/DL (0.60-1.30); GLOMERULAR FILTRATION RATE 82 ML/MIN (>89); GLUCOSE,RANDOM 88 MG/DL (74-106); SODIUM (NA) 141 MEQ/L (136-145)
[2017-08-28 13:45] LABS: TROPONIN I LESS THAN 0.02 NG/ML (0.02-0.05)
--- NOTE | 2017-08-28 14:16 | PD ---
HPI Chief Complaint: Chest Pain Time Seen by Provider: 12:59 Travel History International Travel<30 days: No Contact w/Intl Traveler<30days: No Traveled to known affect area: No History of Present Illness HPI This is a 27-year-old male who has a history of lupus anticoagulant and pulmonary embolism who presents to the emergency department with chest discomfort that started last night described as a sharp stabbing pain in his right upper chest worse with coughing, laughing and breathing, intermittent, moderate severity with some shortness of breath. He says it feels just like when he had pulmonary emboli in the past. He says he has had 20 pulmonary emboli in the past. He is currently using Lovenox for this. He did not take his Lovenox this morning, but otherwise he has been compliant with it. PFSH Past Medical History Hx Anticoagulant Therapy: Yes (coumadin) Asthma: No Blood Disorders: Yes (hx 13 blood clots, lupus anticoagulant disorder) Anxiety: Yes Depression: No Heart Rhythm Problems: No Cancer: Yes (colon) Cardiovascular Problems: Yes (hx 4 spontaneous pneumothorax) High Cholesterol: No Chest Pain: Yes Congestive Heart Failure: No COPD: No Diabetes: No Diminished Hearing: No Endocrine: Yes (lupus) Gastrointestinal Disorders: No Genitourinary: No Hypertension: No Immune Disorder: Yes (Lupus) Implanted Vascular Access Dvce: No Musculoskeletal: Yes (lupus anticoagulant) Neurologic: Yes Psychiatric: No Reproductive: No Respiratory: Yes (PNEUMOTHORAX) Immunizations Current: Yes Migraines: Yes Myocardial Infarction: Yes Sleep Apnea: No Thyroid Disease: Yes (hyperthyroidism) Past Surgical History Abdominal Surgery: Yes Thoracic Surgery: Yes (bilateral- partial removal of lung tissue) Tonsillectomy: Yes Other Surgery: Yes (lung surgeries 2x 1 right 2 left, right side coil in groin ) Social History Alcohol Use: No Tobacco Use: Yes (3 cigarettes a day) Substance Use: No Allergies-Medications (Allergen,Severity, Reaction): Coded Allergies: No Known Allergies (Unverified Adverse Reaction, Unknown, 08/10/17) Reported Meds & Prescriptions Reported Meds & Active Scripts Active Oxycodone-Acetaminophen 10-325 (Oxycodone HCl/Acetaminophen) 10 Mg-325 Mg Tablet 1 Tab PO Q4H PRN 3 Days Lovenox Inj (Enoxaparin Sodium) 60 Mg/0.6 Ml Syr 60 Mg SQ Q12H Methimazole 5 Mg Tab 5 Mg PO DAILY 5 Days Reported Dulcolax Stool Softener (Docusate Sodium) 100 Mg Cap 100 Mg PO BID Vitamin D3 (Cholecalciferol) 50,000 Unit Cap 50,000 Units PO Q7D Gabapentin 300 Mg Cap 300 Mg PO BID Review of Systems Except as stated in HPI: all other systems reviewed are Neg Physical Exam Narrative GENERAL:Well appearing, no acute distress SKIN: Focused skin assessment warm and dry. HEAD: Atraumatic. Normocephalic. EYES: Pupils equal and round. No injection or drainage. ENT: Moist mucous membranes NECK: Trachea midline. CARDIOVASCULAR: Regular rate and rhythm. No murmur appreciated. RESPIRATORY: Clear to auscultation. Breath sounds equal bilaterally. GASTROINTESTINAL: Abdomen soft, non-tender, nondistended. MUSCULOSKELETAL: No obvious deformities. NEUROLOGICAL: Awake and alert. No obvious cranial nerve deficits. Moving all extremities. PSYCHIATRIC: Appropriate mood and affect; insight and judgment normal. Data Data Last Documented VS Vital Signs Date Time Temp Pulse Resp B/P (MAP) Pulse Ox O2 Delivery O2 Flow Rate FiO2 08/28/17 12:21 98.7 81 22 120/64 (82) 99 Orders Orders Electrocardiogram (08/28/17 12:25) Complete Blood Count With Diff (08/28/17 12:25) Basic Metabolic Panel (Bmp) (08/28/17 12:25) Ckmb (Isoenzyme) Profile (08/28/17 12:25) Troponin I (08/28/17 12:25) D-Dimer (08/28/17 12:28) Prothrombin Time / Inr (Pt) (08/28/17 12:28) Ct Pulmonary Angiogram (08/28/17 ) Oxycodone (Roxicodone) (08/28/17 14:00) Labs Laboratory Tests Test 08/28/17 13:10 White Blood Count 5.1 TH/MM3 Red Blood Count 4.71 MIL/MM3 Hemoglobin 13.3 GM/DL Hematocrit 40.2 % Mean Corpuscular Volume 85.3 FL Mean Corpuscular Hemoglobin 28.2 PG Mean Corpuscular Hemoglobin Concent 33.1 % Red Cell Distribution Width 14.2 % Platelet Count 190 TH/MM3 Mean Platelet Volume 7.7 FL Neutrophils (%) (Auto) 68.5 % Lymphocytes (%) (Auto) 20.6 % Monocytes (%) (Auto) 8.3 % Eosinophils (%) (Auto) 1.5 % Basophils (%) (Auto) 1.1 % Neutrophils # (Auto) 3.5 TH/MM3 Lymphocytes # (Auto) 1.1 TH/MM3 Monocytes # (Auto) 0.4 TH/MM3 Eosinophils # (Auto) 0.1 TH/MM3 Basophils # (Auto) 0.1 TH/MM3 CBC Comment DIFF FINAL Differential Comment Prothrombin Time 11.4 SEC Prothromb Time International Ratio 1.1 RATIO D-Dimer Quantitative (PE/DVT) LESS THAN 0.19 MG/L FEU Blood Urea Nitrogen 21 MG/DL Creatinine 1.07 MG/DL Random Glucose 88 MG/DL Calcium Level 8.7 MG/DL Sodium Level 141 MEQ/L Potassium Level 3.8 MEQ/L Chloride Level 105 MEQ/L Carbon Dioxide Level 27.5 MEQ/L Anion Gap 9 MEQ/L Estimat Glomerular Filtration Rate 82 ML/MIN Total Creatine Kinase 97 U/L Troponin I LESS THAN 0.02 NG/ML MDM Medical Decision Making Medical Screen Exam Complete: Yes Emergency Medical Condition: Yes Interpretation(s) No leukocytosis Electrolytes are reassuring Troponin is normal Last [address] Angiography 08/28/17 0000 Signed Impressions: CONCLUSION: 1. No CT evidence for pulmonary artery embolism. 2. Biapical scarring with stable 7 mm right upper lobe solid nodule. Follow-up examination is again recommended in approximately 6 months. Differential Diagnosis Pulmonary embolism, costochondritis, anxiety, drug-seeking behavior Narrative Course This is a 27-year-old male who presents to the emergency department with atypical chest pain. He has a history of lupus anticoagulant and PEs in the past. He is on Lovenox. Labs were obtained and a CT pulmonary angiogram was performed which was negative for PE. I think patient can be discharged home and I do not think there is a life-threatening etiology of his chest pain. Diagnosis Primary Impression: Atypical chest pain Patient Instructions: General Instructions Additional Instructions: If you develop severe chest pain, shortness of breath, sweating, lightheadedness , dizziness or difficulty breathing return to the emergency department immediately. Followup with your primary care physician in 2-3 days if your symptoms are not resolved. Med/Other Pt SpecificInfo: No Change to Meds Disposition: 01 DISCHARGE HOME Condition: Stable Kate Wilson MD August 28, 2017 14:16
--- NOTE | 2017-08-28 16:20 | RADRPT ---
EXAM DATE: 08/28/2017 4:09 PM EDT AGE/SEX: 27 years / Male INDICATIONS: Mid chest pain radiating to chest. CLINICAL DATA: This is the patient's initial encounter. Patient reports that signs and symptoms have been present for 1 day and indicates a pain score of 6/10. MEDICAL/SURGICAL HISTORY: Cardiovascular disease. Lupus. Carcinoma, colon. Chest tube, right. Ch est tube, left. Lung surgery RADIATION DOSE: 7.43 CTDI (mGy) COMPARISON: [facility] – [place], CT PULMONARY ANGIOGRAM, 08/10/2017. . TECHNIQUE: Volumetric scanning was performed using a multi-row detector CT scanner during bolus infu [place] of 67 ml Omnipaque 350 (iohexol) nonionic water-soluble contrast as a single exam dose. The krista a was post processed with a variety of visualization algorithms including full volume maximum intensi ty projection and sliding thin slab reformation. Using automated exposure control and adjustment of the mA and/or kV according to patient size, radiation dose was kept as low as reasonably achievable t o obtain optimal diagnostic quality images. FINDINGS: Pulmonary Arteries: No filling defects are seen in the pulmonary arteries through the segmental vess els. The main pulmonary artery is normal in diameter. Lung: Biapical scarring. Stable postsurgical features of the superior segments of the lower lobes bi laterally. Stable 6 mm solid nodule in the right lung apex. Pleura: No effusion, significant pleural thickening or pneumothorax. Mediastinum: Heart is unremarkable without pericardial effusion. No evidence of mediastinal or hilar adenopathy. Osseous Structures: No abnormal focal lytic or blastic bony lesions. Other: Visualized upper abdomen is unremarkable. CONCLUSION: 1. No CT evidence for pulmonary artery embolism. 2. Biapical scarring with stable 7 mm right upper lobe solid nodule. Follow-up examination is again recommended in approximately 6 months. Electronically signed by: Eric Woodward MD 08/28/2017 4:19 PM EDT
[2017-08-28 16:29] VITALS: BP 111/60; PULSE 69; RESP 18; O2SAT 100
--- NOTE | 2017-08-29 18:04 | EKG ---
Date Performed: 08/28/2017 Time Performed: 12:37:11 PTAGE: 27 years EKG: Sinus rhythm BORDERLINE RIGHT AXIS DEVIATION BORDERLINE ECG Since the PREVIOUS TRACING , no significant change noted PREVIOUS TRACIN08/10/2017 19.42 DOCTOR: Quiana López Interpretating Date/Time 08/29/2017 17:58:54
== END 2017-08-28 17:05 | disposition home or self-care (01) ==
LOC: NEPC 12:16
DX: R07.89 Other chest pain (principal); M32.9 Systemic lupus erythematosus, unspecified; F41.9 Anxiety disorder, unspecified; E05.90 Thyrotoxicosis, unspecified without thyrotoxic crisis or storm; I25.2 Old myocardial infarction; F17.210 Nicotine dependence, cigarettes, uncomplicated; Z79.899 Other long term (current) drug therapy; Z86.711 Personal history of pulmonary embolism
CPT/HCPCS: 71275; 80048; 82550; 84484; 85025; 85379; 85610; 93005; 99285; Q9967